=== PATIENT | male | born 1945 | race Caucasian/White ===

== ENCOUNTER 2017-07-05 22:18 | Inpatient (IN) | payer OTHER ==
[2017-07-05 23:05] LABS: BASOPHILS 0.6 % (0-2); EOSINOPHILS 3.2 % (0-7); HEMATOCRIT 40.1 % (42.0-54.0); IMMATURE GRANULOCYTES 0.1 % (0-5); LYMPHOCYTES 32.5 % (15-50); MCH 29.7 pg (26.0-34.0); MCHC 32.4 g/dL (31.0-37.0); MCV 91.6 fL (80.0-100.0); MEAN PLATELET VOLUME 9.2 fL (7.4-10.4); MONOCYTES 10.2 % (2-11); NEUTROPHILS 53.4 % (40-80); PLATELET COUNT 337 10x3/uL (130-400); RBC 4.38 10x6/uL (4.20-6.10); RDW 16.1 % (11.5-14.5); WBC 6.8 10x3/uL (4.8-10.8)
[2017-07-05 23:12] LABS: INR 0.95 (0.85-1.17); PROTIME 12.5 SECONDS (11.6-15.0)
[2017-07-05 23:15] LABS: ANION GAP 10.1 mmol/L (8-16); BILIRUBIN - TOTAL 0.28 mg/dL (0.2-1.3); CALCIUM 8.6 mg/dL (8.5-10.1); CARBON DIOXIDE 29.7 mmol/L (21.0-32.0); CREATININE - SERUM 1.4 mg/dL (0.6-1.3); POTASSIUM - SERUM 3.8 mmol/L (3.5-5.1)
--- NOTE | 2017-07-06 00:39 | NUR ---
REPORT RECEIVED FROM RENALDO GARCIA.
--- NOTE | 2017-07-06 01:05 | NUR ---
ARRIVED TO FLOOR VIA STRETCHER, ACCOMPANIED BY HOSPITAL STAFF. ORIENTED TO UNIT, LEFT HIP DRESSING REMOVED. MAXIPAD USED FOR DRESSING FROM HOME, INCISION IS EMPTYING SEROSANGUINOUS FLUID, PT STATES THIS HAS BEEN DOING THIS SINCE HIS LAST HIP SURGERY 1 YEAR AGO. CLEAN WITH 4X4 AND NEW DRESSING ATTACHED. NPO FOR SURGERY. CONSENTS OBTAINED.
[2017-07-06] MEDS ORDERED: METHADONE 10 MG10 MG PO (01:07)
[2017-07-06] MEDS ORDERED: PROVENTIL HFA6.7 GM INH (01:08)
[2017-07-06] MEDS ORDERED: BACTRIM 400-801 TAB PO (01:09)
[2017-07-06] MEDS ORDERED: BAYER CHEWABLE81 MG PO (01:09)
[2017-07-06] MEDS ORDERED: SENNA LAXATIVE8.6 MG PO (01:10)
[2017-07-06] MEDS ORDERED: SPIRIVA RESPIMAT4 G1 INH (01:11)
[2017-07-06] MEDS ORDERED: EUCERIN CREAM120 GM TOPICAL (01:12)
[2017-07-06] MEDS ORDERED: MUCINEX600 MG PO (01:13)
[2017-07-06] MEDS ORDERED: DIPHEDRYL25 MG PO (01:14)
[2017-07-06] MEDS ORDERED: ACETAMINOPHEN325 MG PO (01:14)
--- NOTE | 2017-07-06 01:50 | NUR ---
EKG DONE AND PREOP MEDS GIVEN. GONE FOR SURGERY.
--- NOTE | 2017-07-06 03:52 | NUR ---
BACK FROM SURGERY, AWAKE AND ORIENTED. VSS. LEFT HIP DRESSING IS C/D/I, ABDUCTOR IN PLACE. CALL LIGHT IN REACH. WILL CONTINUE TO MONITOR.
[2017-07-06 04:00] VITALS: BP 119/63
--- NOTE | 2017-07-06 06:35 | NUR ---
LEFT HIP DRESSING REMAINS C/D/I, ABDUCTOR PILLOW IN PLACE. VSS AND ANCEF INFUSING. CALL LIGHT IN REACH, URINAL AT BEDSIDE.
--- NOTE | 2017-07-06 07:15 | NUR ---
ASSESSMENT COMPLETED. DENIES ANY NEEDS. RIGHT AC IV WITH NS AT 75. DRSG TO LEFT HIP DRY AND INTACT. ABDUCTION PILLOW IN USE. PPP BUT WEAK. AWAKE AND ALERT. NO NEEDS VOICED. CALL LIGHT IN REACH WITH SR UP. WILL MONITOR
[2017-07-06 08:00] VITALS: BP 109/53
--- NOTE | 2017-07-06 08:22 | OP ---
PATIENT NAME: LEONOR ELE MEDICAL RECORD: [id number] :[birth year] LOCATION:D. D.2128 ADMISSION DATE:07/06/17 SURGEON: BIJAN ANGELO DO DATE OF OPERATION: 07/06/2017 PROCEDURE PERFOMED: An open left hip reduction. SURGEON: Bijan Angelo DO. PREOPERATIVE DIAGNOSIS: Left hip dislocation after a total hip arthroplasty and revision. POSTOPERATIVE DIAGNOSIS: Left hip dislocation after a total hip arthroplasty and revision. INDICATIONS: Mr. Lee is a 72-year-old male who has had several left hip dislocations following hip surgery. It has been done at the [facility]. He presented to [facility] ER this evening with another hip dislocation. He was wanting to be transferred to the [facility]; however, they did not have a bed for him, so he was taken care of here. His left hip had been dislocated since about 8:00 on 07/05/2017, when he bent over to pick something up, put a tape in the player, he said. We discussed with him the risks and benefits of surgery. We attempted a closed reduction; however, that did not happen. After the risks and benefits of surgery were discussed and due to the fact that the prosthesis was tenting the skin. It was felt there was an emergent case to get his hip reduced to prevent it from extruding through the skin and the OR team was called in. DESCRIPTION OF PROCEDURE: Mr. Lee was taken to the operative suite, given general anesthetic and intubated by anesthesia. A closed reduction attempt was made on his left hip, which was not successful. Prior to all this, a timeout was performed and the correct side, site and procedure was confirmed by all members of the room and another surgical team. Prior to any of this, he was given 2 grams Ancef as well. After the closed hip reduction was unsuccessful, the patient was prepped and draped and a previous skin incision was used to go into the hip just through the skin. The prosthetic hip and femoral head was layered, once the patient was placed in the right lateral recumbent position and he was prepped and draped. A skin incision was then made. The prosthesis was there. Several bits of soft tissue were encountered at that time and removed. The hip was then reduced into the prosthetic acetabulum and seemed to be stable, somewhat. It stayed in placed and did not re-dislocate after small range of motion. The wound was then closed using 0 Vicryl pops and 2-0 Vicryl and then a 4-0 Monocryl was run on the skin. Steri-Strips were placed over that, Adaptic 4 x 4s, and Tegaderms were placed over the skin. The patient was then awakened after being placed into an abductor pillow and taken to PACU for recovery. Estimated blood loss 50 mL. The wound was irrigated copiously with 2 liters of normal saline prior to closure. TRANSINT:[id number] Voice Confirmation ID: [id number] DOCUMENT ID: [id number] OPERATIVE REPORT [id number] LEONOR LEE,BIJAN Medina DO at 0822 CC: [id number] DICTATION DATE: 07/06/17 0334 LOG CHECK SCALER: 07/06/17 0451 ADM IN [facility] [address] [place] [address]
--- NOTE | 2017-07-06 11:30 | NUR ---
Patient Name: LEONOR BURTON Admission Status: ER Accout number: [id number] Admission Date: 07-06-2017 : 1945 Admission Diagnosis: Attending: JAVI Current LOS: 1 Anticipated DC Date: 07-07-2017 Planned Disposition: [facility] facility Primary Insurance: [employer] PLANNED EXTERNAL PROVIDER: [facility], [facility] [place] Discharge Planning Comments: * Is the patient Alert and Oriented? Yes 0 * How many steps to enter\exit or inside your home? 7 0 * PCP DR. HINTON, [facility] 0 * Pharmacy [facility] * Preadmission Environment Home Alone 0 * ADLs Independent 0 * Equipment Nebulizer Other Rolling Walker Walker Wheelchair 0 * Other Equipment ELECTRIC WHEELCHAIR AT [facility] TO BE DELIVERED TO PT'S HOME [facility] - MEDICAL EQUIPMENT PROVIDER 0 * List name and contact numbers for known caregivers / representatives who currently or will assist patient after discharge: SHORTY ANTUNEZY, CAREGIVER, 0 * Community resources currently utilized Private Duty Care 0 * Please name any agencies selected above. PRIVATE PAY CARE, [facility] [place], NEEDED / REQUESTED BY PATIENT 0 * Additional services required to return to the preadmission environment? Yes * Can the patient safely return to the preadmission environment? Yes 0 * Has this patient been hospitalized within the prior 30 days at any hospital? No 0 CM RECEIVED TRANSFER ORDER, MET WITH PT IN ROOM TO DISCUSS DISCHARGE PLANNING AND NEEDS. PT REPORTS LIVING AT HOME INDEPENDENTLY AND ALONE. PT REPORTS HAVING ALL NEEDED MEDICAL EQUIPMENT FROM [facility] AND HAS ELECTRIC WHEELCHAIR WAITING FOR DELIVERY FROM THE [facility]; THE [facility] IS ALSO SUPPOSED TO BE CONSTRUCTING RAMP FOR PT'S HOME ACCESS. PT HAS PRIVATE PAY CAREGIVER THAT PT USES NEEDED. CM DISCUSSED THE TRANSFER ORDER, PT IN AGREEMENT WITH TRANSFER TO [facility] FOR [facility]AB SERVICES, REPORTS HE WAS IN THE SNF [facility] THREE MONTHS AGO. CM CALLED LANCE BOYD OF [facility], FOR NUMBER TO ALF FACILITY. LANCE ADVISED THAT [facility] DOES NOT ACCEPT DIRECT REFERRALS AND DIRECTED CM TO CALL AOD/EXPEDITOR. CM CALLED [facility] EXPEDITOR, , SPOKE TO VIRI AND PROVIDED REFERRAL FOR TRANSFER TO REHAB SERVICES. VIRI ADVISED THAT PT WILL NOT TRANSFER TODAY IT IS TOO SOON FOLLOWING SURGERY. VIRI TO FORWARD REFERRAL FOR REHAB TO LANCE BOYD FOR SCREENING. CM WAITING ADMISSION DETERMINATION AND BED AVAILABILITY AT [facility]. Golf Sales Associate: Kris Philippe
--- NOTE | 2017-07-06 12:44 | NUR ---
LYING QUIETLY. DENIES ANY NEEDS. CALL LIGHT IN REACH. WILL MONITOR
[2017-07-06 19:00] VITALS: BP 131/58
--- NOTE | 2017-07-06 21:06 | NUR ---
HS MEDS GIVEN WITH FRESH ICE WATER. PT DENIES PAIN OR NEEDS, BED LOW, CL IN REACH.
--- NOTE | 2017-07-07 03:28 | NUR ---
RESTING WITH EYES CLOSED, RESPERATIONS EVEN, NO S/S DISTRESS NOTED.
--- NOTE | 2017-07-07 03:46 | NUR ---
RESTING IN BED WITH RESPS EVEN/NONLABORED. CALL LIGHT IN REACH. CPOC.
[2017-07-07 04:00] VITALS: BP 118/52
[2017-07-07 05:56] LABS: BASOPHILS 0.5 % (0-2); EOSINOPHILS 5.4 % (0-7); HEMATOCRIT 35.9 % (42.0-54.0); HEMOGLOBIN 11.4 g/dL (13.5-17.5); IMMATURE GRANULOCYTES 0.1 % (0-5); LYMPHOCYTES 26.7 % (15-50); MCH 29.5 pg (26.0-34.0); MCHC 31.8 g/dL (31.0-37.0); MCV 92.8 fL (80.0-100.0); MEAN PLATELET VOLUME 9.7 fL (7.4-10.4); NEUTROPHILS 57.3 % (40-80); PLATELET COUNT 323 10x3/uL (130-400); RBC 3.87 10x6/uL (4.20-6.10); RDW 16.8 % (11.5-14.5); WBC 8.1 10x3/uL (4.8-10.8)
[2017-07-07 06:15] LABS: CARBON DIOXIDE 24.7 mmol/L (21.0-32.0); CREATININE - SERUM 1.2 mg/dL (0.6-1.3); POTASSIUM - SERUM 3.7 mmol/L (3.5-5.1)
--- NOTE | 2017-07-07 07:15 | NUR ---
RESTING QUIETLY RESP UNLABORED NAD NOTED
--- NOTE | 2017-07-07 07:30 | NUR ---
ASSESSMENT COMPLETED. AWAKE AND ALERT. RIGHT AC IV.LEFT HIP WITH ABDUCTION PILLOW IN PLACE. DENIES ANY NEEDS. SR UP WITH CALL LIGHT IN REACH.
--- NOTE | 2017-07-07 07:37 | HP ---
PATIENT: LEONOR BURTON MEDICAL RECORD: [id number] ACCOUNT: [id number] LOCATION:[address] : [birth year] ADMISSION DATE: 07/06/17 HISTORY AND PHYSICAL EXAMINATION HISTORY OF PRESENT ILLNESS: A 72-year-old male who presented to the Emergency Room with dislocation of left hip prosthesis. The patient is a [facility] patient who has no physician with privileges here. He receives all his medical care through the [facility]. No beds available at the [facility]. He reportedly had tenting thinning from the prosthesis, tenting in the skin; had numbness to his foot. Intervention was required. Unsuccessful attempts to reduce the dislocation in the Emergency Room and under anesthesia. Due to the nature of his presentation, he was taken to surgery for open reduction; successful reduction obtained. PAST MEDICAL HISTORY: Significant for hip fracture, multiple surgical procedures, left hip replacement, multiple dislocations, unclear history of cancer, osteomyelitis, peripheral vascular disease, COPD, current nicotine dependence, and everyday smoker. MEDICATIONS: Reviewed as per chart. ALLERGIES: REPORTED IS MINOCYCLINE. REVIEW OF SYSTEMS: GENERAL: He denies any acute change in weight or appetite. HEENT: No cephalgia, visual changes, tinnitus, epistaxis or dysphagia. CARDIOVASCULAR: He denies chest pain or palpitations. PULMONARY: He denies hemoptysis. He denies night sweats. GASTROINTESTINAL: He denies hematemesis, hematochezia or melena. GENITOURINARY: He denies dysuria. MUSCULOSKELETAL: Significant for the recurrent dislocations to the left hip and the acute dislocation and inability to reduce the prosthesis with neurological and musculoskeletal significant symptoms. PHYSICAL EXAMINATION: VITAL SIGNS: Afebrile, blood pressure 119/63, heart rate 71, respirations 16, O2 sats 96%. GENERAL: Alert and oriented, no present distress. He is status post open reduction. HEENT: Normocephalic and atraumatic. Eyes: Pupils equal, round, and reactive. Ears: Canals patent. Nose: Nares patent. Throat: No erythema and no exudates. NECK: Supple. HEART: Regular rate and rhythm. LUNGS: Clear, mildly prolonged expiratory phase. Breathing is nonlabored. ABDOMEN: Soft and nontender. Bowel sounds all 4 quadrants. EXTREMITIES: Present times 4. Surgical wound is clean, dry and intact. LABORATORY DATA: CBC: White count 6.8, hemoglobin 13, hematocrit 40, platelets 337. Chemistry shows a sodium of 136, potassium 3.8, chloride 100, bicarbonate 29.7. BUN 14, creatinine 1.4, glucose 100. INR 0.95. ASSESSMENT AND PLAN: Dislocation prosthetic left hip requiring open reduction, nicotine dependence, and chronic obstructive pulmonary disease. HISTORY AND PHYSICAL [id number] JOSEPHINELEONOR R 1. The patient is admitted. He is status post the open reduction, doing well. We will consult case management for transfer to the [facility] for rehab versus inpatient rehab depending on bed availability at the [facility] and the patient's wishes. 2. Nicotine dependence. Counseled on smoking cessation. 3. Chronic obstructive pulmonary disease, supportive care. TRANSINT:[id number] Voice Confirmation ID: [id number] DOCUMENT ID: [id number] ANA LEONE DO at 0737 CC: [id number] DICTATION DATE: 07/06/17 0755 ASSISTANT OPERATOR: 07/06/17 0837 ADM IN [facility] [address] [place] [address]
[2017-07-07 08:18] VITALS: BP 123/59
--- NOTE | 2017-07-07 11:30 | NUR ---
UP IN BEDSIDE CHAIR PER PHYSICAL THERAPY. CALL LIGHT IN REACH
--- NOTE | 2017-07-07 11:31 | NUR ---
Patient Name: LEONOR BURTON Encounter No: [id number] : 1945 Primary Insurance: [employer] Anticipated DC Date: 07-07-2017 Planned Disposition: Inpatient Rehab External Planned Provider: [facility] DCP follow-up note: CM CALLED [facility], GEGE VELAZQUEZ, , LEFT MESSAGE INFORMING OF URGENCY OF REFERRAL FOR PT'S REHAB AND REQUESTING RETURN CALL SOON POSSIBLE. CM THEN RECEIVED CALL FROM KEVIN SANDOVAL, ADMISSIONS NURSE FOR [facility]. KEVIN REPORTS THEY SCREEN PT'S THURSDAY THRU THURSDAY AT 0915 AM AND THEY CAN SCREEN PT TOMORROW; ADMISSION TODAY IS NOT POSSIBLE. KEVIN INFORMED CM THAT PT IS NOT SERVICE CONNECTED AND THAT OTHER SERVICE CONNECTED PATIENTS TAKE PRIORITY AND THEY SCREEN 6 PATIENTS TODAY ALSO THAT HAVE PRIORITY OVER PATIENT. KEVIN ADVISED THAT PT HAS MEDICARE A AND B AND THAT CM SHOULD CONSIDER ALTERNATIVES IN THE COMMUNITY FOR REHAB SERVICES. KEVIN WILL FAX CM CHECKLIST FOR PT'S INFORMATION TO BE SENT FOR SCREENING TOMORROW. CM MET WITH PT IN ROOM, DISCUSSED ABOVE. PT HAS MEDICARE PART A ONLY CARD, WOULD BE INTERESTED IN STAYING WITH [facility] AND BELIEVES HE WILL NOT REQUIRE A LONG STAY WITH PLAN TO RETURN HOME WITH [facility] DIRECTOR PERSONAL CARE ASSISTANCE ARRANGED BY PATIENT. CM CALLED STACIE OF INPATIENT REHAB, BED AVAILABLE AND WILL SCREEN PT FOR ADMISSION WITH ORDER. ORDER FOR INPATIENT REHAB PRESCREENING OBTAINED. CM WAITING [facility] PRESCREENING DETERMINATION. Kris Philippe, CASE MANAGEMENT
--- NOTE | 2017-07-07 11:59 | NUR ---
Rehab Note- Acute Rehab Prescreen order received. Reviewed medical record, the patient appears to be a good rehab candidate. Will await Physical therapy screen to see the patient's functional mobility. Will continue to follow the patient at this time. Thank you for this referral! Doreen Ventura RN Clinical Liaison, [facility] Rehab
[2017-07-07 12:23] VITALS: BP 123/59
--- NOTE | 2017-07-07 17:03 | NUR ---
Patient Name: LEONOR BURTON Encounter No: [id number] : 1945 Primary Insurance: [employer] Anticipated DC Date: 07-07-2017 Planned Disposition: Inpatient Rehab External Planned Provider: [facility] DCP follow-up note: CM RECEIVED CALL FROM STACIE OF INPATIENT REHAB WHO REPORTED THAT [facility] PLANS TO ACCEPT PT TODAY. CM CALLED AND SPOKE TO KEVIN SANDOVAL OF [facility], , WHO INFORMED CM NOT TO COMPLETE THE ASSESSMENT AND FAX FOR SCREENING AT RI IF ACCEPTED AT [facility]. PT NOTIFIED. DISCUSSED USING MEDICARE FOR REHAB SERVICES AT [place]. PT IN AGREEMENT WITH DISCHARGE TO INPATIENT REHAB AT [place] FOR MEDICARE COVERED SERVICES. CM CALLED [facility], WHICH WAS CLOSED. BEDSIDE NURSE NOTIFIED. [facility] TO CONTACT MED 2 NURSE WITH ROOM NUMBER WHEN READY TO ACCEPT PT AND NURSE REPORT. Kris Philippe, CASE MANAGEMENT
[2017-07-07 17:06] VITALS: BP 132/55
--- NOTE | 2017-07-07 17:50 | NUR ---
Rehab Note- Spoke with [employer] [facility], int business office about Medicare A benefits. Can accept the patient today to [facility] Acute Rehab. Thank you for this referral! Doreen Ventura RN Clinical Liaison, [facility] Rehab
--- NOTE | 2017-07-07 19:33 | NUR ---
ASSESSMENT COMPLETE, A&O. IV TO RIGHT AC SL. SITE CLEAN AND DRY. LEFT HIP WITH DRSG INTACT AND BRACE ON. INFORMED PT OF DISCHARGE TO REHAB, PT STATED UNDERSTANDING.
--- NOTE | 2017-07-07 20:04 | NUR ---
CALLED REPORT TO SUZANNA GUO IN REHAB.
--- NOTE | 2017-07-07 20:20 | NUR ---
HS MEDS GIVEN, PT DENIES NEEDS AT THIS TIME, BED LOW, CL IN REACH.
--- NOTE | 2017-07-08 08:01 | DS ---
PATIENT:LEONOR BURTON :[birth year] MEDICAL RECORD: [id number] DISCHARGE SUMMARY ADMISSION DATE: 07/06/17 DISCHARGE DATE: 07/07/17 A 72-year-old male. DATE OF ADMISSION: 07/06/2017 DATE OF DISCHARGE: 07/07/2017 ADMISSION DIAGNOSIS: Dislocation prosthesis, left hip, open reduction. DISCHARGE DIAGNOSIS: Dislocation prosthesis, left hip, status post open reduction. HOSPITAL COURSE: The patient was admitted to the Emergency Room with gross deformity, left hip prosthesis tendinitis scan, unsuccessful reduction in the Emergency Room. Orthopedics, Dr. Toscano consulted. The patient required open reduction. The patient has had multiple procedures that is from his hip. At the [facility], who is his primary caregiver, his only caregiver, they had no beds available, he underwent treatment here. He has had successful relocation with the open reduction. The patient needs rehabilitation. The patient is discharged to rehab in stable condition. DISCHARGE MEDICATIONS: Per med rec. PHYSICAL EXAMINATION: VITAL SIGNS: On discharge, temperature 98.2, blood pressure 118/52, heart rate 72, respirations 16, O2 sats 97% on room air. HEART: Regular rate and rhythm. LUNGS: Clear. ABDOMEN: Soft. EXTREMITIES: Present times 4. Surgical wound is clean, dry and intact. Follow up with Dr. Toscano, follow up with the [facility] after rehabilitation discharge. TRANSINT:[id number] Voice Confirmation ID: [id number] DOCUMENT ID: [id number] ANA LEONE DO at 0801 CC: [id number] DICTATION DATE: 07/07/17814 SOLAR INSTALLATION MANAGER: 07/07/172 DIS IN 07/07/[address] [place] [id number] [place] [address]
== END 2017-07-07 20:25 | DRG 468 ==
LOC: D.ER 22:18 → D.M2 07-06 00:29 → OBSVTIME 07-06 00:30 → D.M2 07-06 10:20
PROVIDERS: Emergency Medicine; Orthopaedic Surgery; ADMIT Family Medicine
PROC: 0SWE0JZ Revision of Synthetic Substitute in Left Hip Joint, Acetabular Surface, Open Approach (ICD-10-PCS; principal; 2017-07-06 01:53)
DX: T84.021A Dislocation of internal left hip prosthesis, initial encounter (principal); Y83.8 Other surgical procedures as the cause of abnormal reaction of the patient, or of later complication, without mention of misadventure at the time of the procedure; J44.9 Chronic obstructive pulmonary disease, unspecified; I10 Essential (primary) hypertension; F17.200 Nicotine dependence, unspecified, uncomplicated

== ENCOUNTER 2017-07-07 20:44 | Inpatient (IN) | payer MEDICARE ==
[~2017-07-07] VITALS: Ht 180.3 cm; Wt 78.5 kg
[~2017-07-07 20:44] MED LIST: ACETAMINOPHEN325 MG PO; BACTRIM 400-801 TAB PO; BAYER CHEWABLE81 MG PO; DIPHEDRYL25 MG PO; EUCERIN CREAM120 GM TOPICAL; METHADONE 10 MG10 MG PO; MUCINEX600 MG PO; PROVENTIL HFA6.7 GM INH; SENNA LAXATIVE8.6 MG PO; SPIRIVA RESPIMAT4 G1 INH
--- NOTE | 2017-07-07 20:45 | NUR ---
PT RECIEVED FROM MED 2 VIA . ADMITTED TO ROOM [address] WILLSON SERVICES. PT IS ALERT AND ORIENTED X 3. DENIES ACUTE PAIN OR DISCOMFORT AT THIS TIME. ADMISSION PAPERWORK AND HISTORY DONE. DRESSING TO LEFT HIP NOTED TO BE SATURATED IN SLIGHTLY RED TINGED CLEAR DRAINAGE. DRESSING REMOVED AND SITE CLEANSED WITH WOUND SPORTS ATTORNEY. UNABLE TO DETECT ANY DRAINAGE DURING PROCEDURE. NEW DRESSING APPLIED TO SITE. PT VOICED VERBAL UNDERSTANDING TO ALL REHAB RULES AND PROCEDURES.
--- NOTE | 2017-07-07 22:09 | NUR ---
PT RESTING IN BED WATCHING TV. NO NEEDS VOICED.
[2017-07-07 22:26] VITALS: BP 138/65; BMI 24.1
--- NOTE | 2017-07-07 22:26 | NUR ---
ADMISSION ASSESSMENT COMPLETED. PT. RESTING COMFORTABLY IN BED. NO VOICED NEEDS AT THIS TIME AND HIS CALL LIGHT IS WITHIN REACH.
--- NOTE | 2017-07-08 00:03 | NUR ---
PT ASSISTED TO THE BATHROOM WITH SBA USING WC. NO DISTRESS NOTED. NO COMPLAINT VOICED.
--- NOTE | 2017-07-08 03:14 | NUR ---
PT RESTING IN BED WITH EYES CLOSED. ASSISTED TO THE BATHROOM PRN.
--- NOTE | 2017-07-08 05:54 | NUR ---
PT IS RESTING QUIETLY IN BED WITH EYES CLOSED. NO ACUTE DISTRESS NOTED.
[2017-07-08 07:41] LABS: BASOPHILS 0.7 % (0-2); EOSINOPHILS 7.5 % (0-7); HEMATOCRIT 37.8 % (42.0-54.0); HEMOGLOBIN 12.6 g/dL (13.5-17.5); IMMATURE GRANULOCYTES 0.2 % (0-5); LYMPHOCYTES 22.6 % (15-50); MCH 30.2 pg (26.0-34.0); MCHC 33.3 g/dL (31.0-37.0); MEAN PLATELET VOLUME 9.5 fL (7.4-10.4); PLATELET COUNT 348 10x3/uL (130-400); RBC 4.17 10x6/uL (4.20-6.10); WBC 8.7 10x3/uL (4.8-10.8)
[2017-07-08 07:46] LABS: MCV 90.6 fL (80.0-100.0)
[2017-07-08 08:15] LABS: CALC OSMOLALITY 263 mosm/kg (275-300); CALCIUM 9.1 mg/dL (8.5-10.1); CHLORIDE - SERUM 99 mmol/L (98-107); GLUCOSE 104 mg/dL (74-106); POTASSIUM - SERUM 3.8 mmol/L (3.5-5.1); SODIUM 133 mmol/L (136-145); UREA NITROGEN 8 mg/dL (7-18); eGFR NON AFRICAN AMERICAN 78 mL/min (90-120)
[2017-07-08 08:24] VITALS: BP 131/75
[2017-07-08 09:05] VITALS: Ht 180.3 cm; Wt 78.5 kg
--- NOTE | 2017-07-08 14:05 | RHP ---
PATIENT: LEONOR LEE MEDICAL RECORD: [id number] ACCOUNT: [id number] LOCATION:[facility]1119 : [birth year] ADMISSION DATE: 07/07/17 REHABILITATION HISTORY AND PHYSICAL EXAMINATION POST ADMISSION PHYSICIAN EXAMINATION Post-Admission Physical Examination and History and Physical DATE OF ADMISSION TO THE REHAB: 07/07/2017 ADMITTING DIAGNOSES: Open reduction of left hip due to a recurrent left hip dislocation. HISTORY OF PRESENT ILLNESS: Mr. Lee is admitted to inpatient rehab for open reduction of left hip due to recurrent left hip dislocation. He is a 72-year-old gentleman who presented to the Emergency Room with dislocation of his left hip prosthesis. The patient is a [facility] patient, who has no physician here. He receives all his medical care to the [facility]. No beds are available. He reported he had thinning from his prosthesis, thinning to the skin, had numbness to his foot. Intervention was required after unsuccessful attempts to reduce the dislocation and due to his nature of presentation, he was taken to surgery for an open reduction and successful reduction was obtained. He is in the acute hospital, has been seen by physical therapy. He is on a strict left hip precaution with use of abduction pillow to be used. He has been given IV antibiotics. His noted surgical left hip incision did have some drainage. He lives at home alone with a private caregiver as needed. He was independent with ADLs and mobility prior to surgery, currently setup for moderate to max assist for ADLs and moderate assist and total assist for mobility. He plans to return home with his prior level of functioning or better if possible. COMORBIDITIES: Include recurrent hip dislocation, peripheral vascular disease, COPD, arthritis, osteomyelitis, pain, self-care deficits, high risk for infection, osteomyelitis and impaired mobility. PAST MEDICAL HISTORY: Significant for hypertension, COPD, malignant neoplasm, gastroesophageal reflux disease, arthritis, osteomyelitis, depression, he has got a history of tobacco use, left hip fracture and multiple left hip dislocations. PAST SURGICAL HISTORY: Includes surgery on his left hip. ALLERGIES: MINOCYCLINE. CURRENT MEDICATIONS: He is on Tudorza b.i.d., chewable aspirin daily, he is on a dose of Bactrim b.i.d., senna 1 tab daily p.r.n., he is on Eucerin as needed, methadone 10 mg b.i.d., Mucinex 600 mg b.i.d., diphenhydramine 25 mg b.i.d., Ventolin 2 puffs q.4 hours p.r.n. and Tylenol as needed. HABITS: No alcohol use at this time, but does have some tobacco use. FAMILY HISTORY: Noncontributory. SOCIAL HISTORY: The patient hopes to return back home as above. REVIEW OF SYSTEMS: HISTORY AND PHYSICAL [id number] LEONOR LEE GENERAL: Does complain of weakness and fatigue. HEENT: Denies cold, cough, or congestion. CARDIOVASCULAR: Denies chest pain. PHYSICAL EXAMINATION: VITAL SIGNS: Stable, afebrile. GENERAL: A well-developed gentleman in no acute distress, alert upon exam. HEENT: Normocephalic and atraumatic. Mucosa moist. NECK: Supple. No lymphadenopathy. LUNGS: Clear at this time. HEART: Regular rate and rhythm. ABDOMEN: Benign. EXTREMITIES: Consistent with hip surgery. NEUROLOGIC: Seems intact. LABORATORY DATA: His white count is 8.7, H&H of 13 and 38 and platelet count was noted to be 348. His sodium is 133, potassium 3.8, BUN and creatinine of 8 and 1.0 and blood sugar is 104. ASSESSMENT: This is a 72-year-old gentleman admitted to the rehab with a working diagnosis of an open reduction of his left hip secondary to chronic dislocations. The patient has potential to make improvement. We instituted the following multidisciplinary therapies including, but not limited to physical, occupational, respiratory, speech, nutritional services, prosthetics and orthotics. Given his complex condition and risk for more complications, rehabilitation services cannot be provided at a lower level of care such as a fci facility. PLAN: 1. Admit to [facility] rehab for intensive inpatient therapy to include the following disciplines: A. Physical therapy to improve gait, all transfer skills and bed mobility to a modified independent level. B. Occupational therapy to improve activities of daily living to a modified independent level. C. Case management to assist with discharge planning and placement options. D. Nutrition to assist with nutritional needs. E. Rehabilitation nursing to assist and monitor the patient's underlying medical conditions and to assist with any type of bowel or bladder management. 2. The patient's current medication and medical care will be continued. 3. The patient will be placed on standard fall precautions. 4. The patient's estimated length of stay is approximately 7-10 days. 5. Discuss this patient during care team staff meeting this week. TRANSINT:[id number] Voice Confirmation ID: [id number] DOCUMENT ID: [id number] FANNY notes whether there has been none or any medical/functional change since admission: - FANNY attests patient continues to be appropriate for IRF: - HISTORY AND PHYSICAL [id number] LEONOR LEE SCOTT MD at 1405 CC: [id number] DICTATION DATE: 07/08/1730 INTERACTIVE MEDIA MARKETING DIRECTOR: 07/08/17 1033 ADM IN [facility] [address] [place] [id number]
--- NOTE | 2017-07-08 16:18 | NUR ---
PATIENT ADMITTED TO REHAB FROM ACUTE FLOOR.DR. HINTON AT [facility] IS HIS PCP. DME AT HOME: ROLLING WALKER, WHEELCHAIR, NEBULIZER AND AN ELECTRIC WHEELCHAIR FROM [place]. WILL CONTINUE TO FOLLOW WITH PATIENT. HE WILL BE RA AT NEXT MEETING. 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
--- NOTE | 2017-07-08 19:47 | NUR ---
PT IS RESTING IN BED WITH EYES CLOSED. AWOKE EASILY TO VERBAL STIMULI. ALERT AND ORIENTED X 4. DENIES ANY PAIN OR DISCOMFORT AT THIS TIME. PT FULLY DRESSED AT THIS TIME. I WILL LOOK AT HIP INCISION WHEN HE GOES TO THE BATHROOM NEXT. SR'S ARE UP X 2 IN BED. CALL LIGHT AND BEDSIDE TABLE ARE WITHIN EASY REACH.
[2017-07-08 20:07] VITALS: BP 137/78
--- NOTE | 2017-07-08 21:33 | NUR ---
PT IS IN HIS ROOM WITH THE RESPIRATORY THERAPIST. NO COMPLAINT VOICED.
--- NOTE | 2017-07-08 23:26 | NUR ---
RESTING IN BED WITH EYES CLOSED. NO DISTRESS NOTED.
--- NOTE | 2017-07-09 01:29 | NUR ---
LYING IN BED WITH BLANKET COVERING HALF OF HIS FACE. NO S/S OF DISTRESS OBSERVED. LEGS AND FEET CYANOTIC WITH BRIGHT RED SKIN TO BOTTOM OF FEET. CALVES LOOK TAUT WITH SOME DRY SKIN OBSERVED. CALL LIGHT AND OVERBED TABLE IN REACH. IV TO RIGHT AC PATENT. DRESSING CLEAN, DRY ANDR INTACT.
--- NOTE | 2017-07-09 05:54 | NUR ---
PT RESTING IN BED WITH EYES CLOSED. AWOKE EASILY TO VERBAL STIMULI. REFUSED SHOWER THIS AM.
--- NOTE | 2017-07-09 08:03 | NUR ---
SITTING UP IN BED EATING BREAKFAST. CALL LIGHT IN REACH. DENIES NEEDS.
--- NOTE | 2017-07-09 08:14 | NUR ---
SITTING UP IN BED EATING BREAKFAST. DENIES NEEDS. WEEDGE BETWEEN BLE.
--- NOTE | 2017-07-09 12:12 | NUR ---
SITTING UP IN ROOM EATING LUNCH. DENIES NEEDS OR C/O. HAS BRACE ON THAT GOES AROUND HIS WAIST AND UPPER PART OF LLE.
[2017-07-09 16:11] VITALS: BP 116/74
--- NOTE | 2017-07-09 16:22 | NUR ---
LAYING DOWN IN BED WATCHING TV. HAS LEG WEDGE BETWEEN LEGS. INCISION HAS MINIMAL AMT OF SEROUS DRAINAGE NOTED TO DRESSING. DENIES INCREASED PAIN.
--- NOTE | 2017-07-09 19:40 | NUR ---
REST IN BED AND WATCH TV.
--- NOTE | 2017-07-09 21:50 | NUR ---
DRESSING CHANGE IN LEFT HIP.
[2017-07-10 02:16] VITALS: BP 128/69
--- NOTE | 2017-07-10 03:20 | NUR ---
IN BED, EYES CLOSED. NO DISTRESS NOTED.
--- NOTE | 2017-07-10 03:40 | NUR ---
REST IN BED, EYE CLOSE, CALL LIGHT WITHIN REACH.
[2017-07-10 06:19] LABS: ANION GAP 9.7 mmol/L (8-16); CALCIUM 8.5 mg/dL (8.5-10.1); CARBON DIOXIDE 29.7 mmol/L (21.0-32.0); CREATININE - SERUM 1.2 mg/dL (0.6-1.3)
[2017-07-10 06:21] LABS: POTASSIUM - SERUM 4.4 mmol/L (3.5-5.1)
[2017-07-10 06:31] LABS: HEMATOCRIT 36.6 % (42.0-54.0); HEMOGLOBIN 12.1 g/dL (13.5-17.5); LYMPHOCYTES 38.1 % (15-50); MCH 30.1 pg (26.0-34.0); MCHC 33.1 g/dL (31.0-37.0); MEAN PLATELET VOLUME 9.2 fL (7.4-10.4); NEUTROPHILS 38.2 % (40-80); PLATELET COUNT 334 10x3/uL (130-400); RBC 4.02 10x6/uL (4.20-6.10); WBC 6.7 10x3/uL (4.8-10.8)
--- NOTE | 2017-07-10 08:00 | NUR ---
SITTING UP IN BED EATING BREAKFAST. DENIES INCREASED PAIN OR NEEDS. HAS WEDGE IN BETWEEN LEGS. NOT WEARING STRAP ON HIP/LEG BRACE AT PRESENT. [facility] AND IT STILL IS SUPPORTIVE AND USEFUL
[2017-07-10 09:10] VITALS: BP 101/48
--- NOTE | 2017-07-10 12:19 | NUR ---
SITTING UP IN WC EATING LUNCH. DENIES NEEDS OR C/O.
--- NOTE | 2017-07-10 19:33 | NUR ---
CALLED TO ROOM BY STAFF DUE TO EXCESSIVE DRAINAGE OF LEFT HIP INCISION. PT. STATED WHEN HE SAT ON THE TOILET THE DRESSING FELL OFF AND DRAINAGE STARTED SPRAYING OUT OF WOUND. WOUND IS WARM TO TOUCH, RED AND SWOLLEN. WOUND CLEANSED AND REDRESSED . DRAINAGE APPEARED TO BE SEROSANGUOS WITH YELLOW PUS. EXCESSIVE AMOUNT OBSERVED. CALL LIGHT AND OVERBED TABLE IN REACH.
[2017-07-10 20:27] VITALS: BP 113/59
--- NOTE | 2017-07-10 21:22 | NUR ---
RESTING IN BED AT THIS TIME WITH EYES OPEN AND TV ON. DENIES ANY PAIN. DRESSING TO LEFT HIP INTACT. ALERT AND ORIENTED. PLEASANT AND COOPERATIVE. CALL LIT AND OVERBED TABLE IN REAC.
--- NOTE | 2017-07-11 00:14 | NUR ---
RESTING IN BED WITH EYES CLOSED. NO S/S OF DISTRESS OBSERVED. CALL LIGHT IN REACH.
[2017-07-11 08:00] VITALS: BP 114/51
--- NOTE | 2017-07-11 08:00 | NUR ---
SHIFT ASSMT COMPLETED.DRSG LEFT HIP INTACT.BREAKFAST GIVEN.DENIES NEEDS.
--- NOTE | 2017-07-11 12:00 | NUR ---
EATING LUNCH.VISITING WITH FRIEND.
--- NOTE | 2017-07-11 16:00 | NUR ---
OUTSIDE IN WC WITH FRIEND
--- NOTE | 2017-07-11 19:35 | NUR ---
SIT UP IN BED AND WATCH TV.
--- NOTE | 2017-07-11 19:51 | NUR ---
PT. IN BED WITH HOB UP FOR COMFORT WATCHING TV. NO VOICED NEEDS AT THIS TIME AND HE HAS HIS CALL LIGHT WITHIN REACH.
--- NOTE | 2017-07-11 20:05 | NUR ---
DRESSING CHANGE LEFT HIP WITH WOUND CLEASER, COVER 4X4, AND ABD PAD, SECURED WITH SOFT CLOTH SURGICAL TAPE.
--- NOTE | 2017-07-11 21:55 | NUR ---
APPLIED EUCERIN CREAM TO BILATERAL LEGS.
[2017-07-12 01:32] VITALS: BP 142/63
--- NOTE | 2017-07-12 01:49 | NUR ---
REST IN BED, EYE CLOSE, CALL LIGHT WITHIN REACH.
--- NOTE | 2017-07-12 04:58 | NUR ---
REST IN BED, CALL LIGHT WITHIN REACH.
[2017-07-12 08:00] VITALS: BP 118/49
--- NOTE | 2017-07-12 08:00 | NUR ---
SHIFT ASSMT COMPLETED.DENIES NEEDS.DRSG LEFT HIP INTACT.
--- NOTE | 2017-07-12 12:00 | NUR ---
EATING LUNCH.DENIES NEEDS.
--- NOTE | 2017-07-12 16:00 | NUR ---
RESTING QUIETLY.CL IN REACH.
[2017-07-12 19:00] VITALS: BP 120/81
--- NOTE | 2017-07-12 19:48 | NUR ---
PT. UP IN W/C AND HAS NO VOICED NEEDS. CALL LIGHT WITHIN REACH.
--- NOTE | 2017-07-13 | NUR ---
PT LYING IN BED. EYES CLOSED. CHEST RISING AND FALLING. LEFT LEG IMMBOLIZER WHEN UP. UP AD JON. WHEELCHAIR. NO O2. NO IV. BED IN LOWEST POSITION AND CALL LIGHT WITHIN REACH.
--- NOTE | 2017-07-13 03:00 | NUR ---
PT LYING IN BED WITH HOB UP FOR COMFORT, EYES CLOSED, CHEST RISING AND FALLING. BED IN LOWEST POSITION AND CALL LIGHT WITHIN REACH.
[2017-07-13 05:09] LABS: BASOPHILS 0.9 % (0-2); EOSINOPHILS 7.4 % (0-7); HEMATOCRIT 37.4 % (42.0-54.0); HEMOGLOBIN 11.8 g/dL (13.5-17.5); IMMATURE GRANULOCYTES 0.1 % (0-5); LYMPHOCYTES 34.4 % (15-50); MCH 29.5 pg (26.0-34.0); MCHC 31.6 g/dL (31.0-37.0); MCV 93.5 fL (80.0-100.0); MEAN PLATELET VOLUME 9.3 fL (7.4-10.4); MONOCYTES 12.7 % (2-11); NEUTROPHILS 44.5 % (40-80); PLATELET COUNT 355 10x3/uL (130-400); RDW 16.7 % (11.5-14.5)
[2017-07-13 05:42] LABS: ANION GAP 12.3 mmol/L (8-16); CALCIUM 8.8 mg/dL (8.5-10.1); CARBON DIOXIDE 27.2 mmol/L (21.0-32.0); CREATININE - SERUM 1.2 mg/dL (0.6-1.3); POTASSIUM - SERUM 4.5 mmol/L (3.5-5.1)
--- NOTE | 2017-07-13 06:13 | NUR ---
PT LYING IN BED WITH HOB UP FOR COMFORT. EYES CLOSED. CHEST RISING AND FALLING. BED IN LOWEST POSITION AN CALL LIGHT WITHIN REACH.
--- NOTE | 2017-07-13 07:19 | NUR ---
RESTING QUIETLY IN BED. NO S/S DISTRESS. CALL LIGHT IN REACH
[2017-07-13 09:07] VITALS: BP 114/53
--- NOTE | 2017-07-13 16:35 | NUR ---
RESTING QUIETLY IN BED. "INDUSTRIAL TRUCK DRIVER" IN ROOM WITH PT AGAIN. SHE BROUGHT PT TO DESK EARLIER STATING "WE NEED A PASS FOR A FEW HOURS". WHEN QUESTIONED ABOUT THE NEED SHE FINALLY SAID "WE HAVE BUSINESS TO TAKE CARE OF AT THE BANK". INDUSTRIAL TRUCK DRIVER AND PT WERE TALKED TO QUITE A BIT BY NURSE AND ADMISSIONS COORDINATER (KOLTON). INDUSTRIAL TRUCK DRIVER FINALLY STATED THEY NEEDED TO GO TO [facility] AND GET PANTS FOR PT. ALSO SHE WAS OUT OF GAS IN HER CAR AND ONLY PT COULD USE HIS DEBIT CARD TO GET MONEY. SHE KEPT INSISTING HE COULD DO THERAPY AT HOME. SHE SEEMED ANXIOUS AND ANNOYED WHEN QUESTIONED BY STAFF. PT SEEMED QUIET AND COOPERATIVE IN GOING ALONG WITH WHAT EVER INDUSTRIAL TRUCK DRIVER STATED. HE WAS TOLD ABOUT POTENTIAL FOR MEDICARE AND/OR [facility] IF PT WAS WELL ENOUGH TO LEAVE REHAB AND GO SHOPPING AT [facility]. PT REMAINED IN W/C WHOLE TIME. FINALLY, PT DECIDED TO STAY IN REHAB FOR THE PRESENT.
--- NOTE | 2017-07-13 18:47 | NUR ---
PT RETURNED TO FLOOR APPX 1800 BEING PUSHED IN W/C BY CAREGIVER. WHEN ASKED ABOUT THEIR PRESENCE FOR LAST 3.5 HRS THE CAREGIVER STATED "WE'VE BEEN IN THE PARKING LOT HAVING SEX", THE PT STATED THEY WERE IN THE CORNER OF THE PARKING LOT IN CARE GIVERS CARE SMOKING CIGARETTES. DR ISLAS NOTIFIED OF PT OFF UNIT FOR LONG PERIOD OF TIME AND HIS STORY WHEN HE RETURNED TO UNIT. PT DENIES INJURIES, CHANGE IN PAIN, SOB OR CHANGE IN CONDITION AT ALL. HE AND THE CAREGIVER WERE HEARD TALKING IN THE [place] BY STAFF FOR LONG PERIOD OF TIME PRIOR TO THEM LEAVING FLOOR, TALKING ABOUT NEEDING GAS FOR THE CAR AND ONLY THE PT COULD USE HIS DEBIT CARD. NURSE SPOKE WITH PT AND SALESPERSON RECREATIONAL VEHICLES REGUARDING POLICY ABOUT LEAVING HOSPITAL PROPERTY, PT SMOKING, BEING OFF UNIT FOR LONG PERIODS AND POSSIBILITY OF PT BEING D/C'D BEFORE EXPECTED D/C DATE. ALSO MEDICARE/MT BEING NOTIFIED OF PT ELOPING WHICH COULD IMPACT THE PAYMENT. PT AND SALESPERSON RECREATIONAL VEHICLES STATED UNDERSTANDING AND DENIES QUESTIONS.
[2017-07-13 19:56] VITALS: BP 121/58
--- NOTE | 2017-07-13 20:24 | NUR ---
RESTING IN BED WITH EYES CLOSED. NO S/S OF DISTRESS OBSERVED. EASILY AROUSES WITH VERBAL STIMULI. PLEASANT AND COOPERATIVE. DENIES ANY PAIN AT THIS TIME. DRESSING TO LEFT HIP. CLEAN, DRY AND INTACT. NO REDNESS OBSERVED.
[2017-07-14 07:00] VITALS: BP 101/43
--- NOTE | 2017-07-14 08:04 | NUR ---
SITTING UP IN BED WATCHING TV. DENIES PAIN OR NEEDS.
[2017-07-14] MEDS ORDERED: METHADONE 10 MG10 MG PO (08:41)
--- NOTE | 2017-07-14 10:05 | NUR ---
NOTIFIED PT THAT DR. ISLAS HAD D/C'D HIM. HE STATED UNDERSTANDING OF D/C AND SAID HIS POLICY CHANGE CLERKS SUPERVISOR WOULD BE TO GET HIM AT 1300
--- NOTE | 2017-07-14 12:03 | NUR ---
WENT OVER D/C INSTRUCTIONS WITH PT. HE DECLINED HOME HEALTH OR NEEDING SUPPLIES FOR DRESSING HIS OWN LEFT HIP, WHICH HE STATED HE COULD EASILY DO AND HAD SOME SUPPLIES AT HIS HOME FOR THAT. HE ST[facility] HIS HIP AND HAVE CONTINUED PHYSICAL THERAPY THROUGH THEM. GAVE PT HIS PAPER SCRIPT FOR METHADONE FROM DR ISLAS ALSO. WENT OVER HIS FOLLOW UP APPTS WITH MD'S. HE STATED NO QUESTIONS OR NEEDS.
--- NOTE | 2017-07-14 15:22 | NUR ---
EXECUTIVE ADMINISTRATOR PICKED PT UP. STAFF PUSHED PT TO FRONT OF HOSPITAL IN W/C WITH ALL PERSONAL BELONGINGS.
== END 2017-07-14 15:30 | disposition home or self-care (01) | DRG 560 ==
LOC: D.REHAB 20:44
PROVIDERS: ADMIT Emergency Medicine
DX: Z47.89 Encounter for other orthopedic aftercare (principal); M86.9 Osteomyelitis, unspecified; M24.452 Recurrent dislocation, left hip; I73.9 Peripheral vascular disease, unspecified; J44.9 Chronic obstructive pulmonary disease, unspecified; M19.90 Unspecified osteoarthritis, unspecified site; K21.9 Gastro-esophageal reflux disease without esophagitis; Z74.09 Other reduced mobility

== ENCOUNTER 2018-08-11 15:20 | Emergency (ER) | payer OTHER ==
[~2018-08-11] VITALS: Ht 180.3 cm; Wt 82.7 kg
[2018-08-11 15:26] VITALS: Ht 180.3 cm; Wt 82.7 kg
[2018-08-11 18:54] LABS: BASOPHILS 0.6 % (0-2); EOSINOPHILS 2.4 % (0-7); HEMOGLOBIN 12.9 g/dL (13.5-17.5); IMMATURE GRANULOCYTES 0.2 % (0-5); LYMPHOCYTES 31.4 % (15-50); MCH 30.6 pg (26.0-34.0); MCHC 33.1 g/dL (31.0-37.0); MCV 92.4 fL (80.0-100.0); MEAN PLATELET VOLUME 8.9 fL (7.4-10.4); MONOCYTES 8.4 % (2-11); PLATELET COUNT 370 10x3/uL (130-400); RBC 4.22 10x6/uL (4.20-6.10); RDW 16.5 % (11.5-14.5); WBC 8.5 10x3/uL (4.8-10.8)
[2018-08-11 19:16] LABS: ALBUMIN 2.7 g/dL (3.4-5.0); ANION GAP 8.7 mmol/L (8-16); BILIRUBIN - TOTAL 0.41 mg/dL (0.2-1.3); CALCIUM 9.2 mg/dL (8.5-10.1); CARBON DIOXIDE 30.1 mmol/L (21.0-32.0); CREATININE - SERUM 1.2 mg/dL (0.6-1.3); POTASSIUM - SERUM 4.8 mmol/L (3.5-5.1); PROTEIN - SERUM 7.8 g/dL (6.4-8.2)
[2018-08-11 23:11] LABS: ERYTHROCYTE SEDIMENTATION RATE 51 mm/hr (0-20)
[2018-08-11 23:15] VITALS: BP 136/68
== END 2018-08-11 23:43 | disposition other institution (70) ==
LOC: D.ER 15:20
PROVIDERS: Emergency Medicine; Family Medicine
DX: M86.18 Other acute osteomyelitis, other site (principal); L89.229 Pressure ulcer of left hip, unspecified stage; I10 Essential (primary) hypertension; J44.9 Chronic obstructive pulmonary disease, unspecified; Z85.9 Personal history of malignant neoplasm, unspecified; F17.200 Nicotine dependence, unspecified, uncomplicated

== ENCOUNTER 2021-02-19 12:28 | Inpatient (IN) | payer OTHER ==
[~2021-02-19] VITALS: Ht 180.3 cm; Wt 81.6 kg
[2021-02-19 13:43] LABS: ANION GAP 9.6 mmol/L (8-16); BASOPHILS 0.4 % (0-2); CALCIUM 8.4 mg/dL (8.5-10.1); CARBON DIOXIDE 27.8 mmol/L (21.0-32.0); CREATININE - SERUM 1.2 mg/dL (0.6-1.3); EOSINOPHILS 8.2 % (0-7); HEMATOCRIT 32.4 % (42.0-54.0); HEMOGLOBIN 9.8 g/dL (13.5-17.5); IMMATURE GRANULOCYTES 0.3 % (0-5); LYMPHOCYTE ABS# 1.75 10x3/uL (1.32-3.57); LYMPHOCYTES 23.8 % (15-50); MCH 26.3 pg (26.0-34.0); MCHC 30.2 g/dL (31.0-37.0); MCV 87.1 fL (80.0-100.0); MEAN PLATELET VOLUME 9.8 fL (7.4-10.4); MONOCYTES 15.5 % (2-11); NEUTROPHIL ABS# 3.82 10x3/uL (1.78-5.38); NEUTROPHILS 51.8 % (40-80); PLATELET COUNT 357 10x3/uL (130-400); POTASSIUM - SERUM 3.4 mmol/L (3.5-5.1); RBC 3.72 10x6/uL (4.20-6.10); RDW 17.9 % (11.5-14.5); WBC 7.4 10x3/uL (4.8-10.8)
[2021-02-19 13:54] LABS: ALBUMIN 2.7 g/dL (3.4-5.0); BILIRUBIN - TOTAL 0.23 mg/dL (0.2-1.3); MAGNESIUM - SERUM 2.3 mg/dL (1.8-2.4); PROTEIN - SERUM 7.5 g/dL (6.4-8.2)
[2021-02-19 14:08] LABS: APTT 32.3 SECONDS (22.8-39.4); INR 1.1 (0.85-1.17); PROTIME 13.1 SECONDS (11.6-15.0)
--- NOTE | 2021-02-19 17:50 | NUR ---
SPOKE TO AMADOR REGARDING PATIENT HAVING BEDBUGS. PATIENT BATHED AND BELONGINGS DOUBLE BAGGED. PATIENT'S LINENS DOUBLE BAGGED AND HOUSEKEEPING NOTIFIED. CALLED GRIFFIN ON FLOOR TO UPDATE.
[2021-02-19 19:08] VITALS: BMI 25.1
[2021-02-19 20:00] VITALS: BP 129/60
[2021-02-20 04:00] VITALS: BP 114/49
[2021-02-20 06:47] LABS: ALBUMIN 2.6 g/dL (3.4-5.0); ANION GAP 11.8 mmol/L (8-16); BILIRUBIN - TOTAL 0.3 mg/dL (0.2-1.3); CALCIUM 8.4 mg/dL (8.5-10.1); CARBON DIOXIDE 28.4 mmol/L (21.0-32.0); CREATININE - SERUM 1.3 mg/dL (0.6-1.3); POTASSIUM - SERUM 3.2 mmol/L (3.5-5.1); PROTEIN - SERUM 7.4 g/dL (6.4-8.2)
[2021-02-20 06:51] LABS: BASOPHILS 0.5 % (0-2); EOSINOPHILS 9.7 % (0-7); HEMATOCRIT 34.6 % (42.0-54.0); HEMOGLOBIN 10.5 g/dL (13.5-17.5); LYMPHOCYTE ABS# 1.79 10x3/uL (1.32-3.57); MCH 26.6 pg (26.0-34.0); MCHC 30.3 g/dL (31.0-37.0); MCV 87.6 fL (80.0-100.0); MEAN PLATELET VOLUME 9.6 fL (7.4-10.4); MONOCYTES 13.9 % (2-11); NEUTROPHIL ABS# 2.59 10x3/uL (1.78-5.38); NEUTROPHILS 44.9 % (40-80); PLATELET COUNT 368 10x3/uL (130-400); RBC 3.95 10x6/uL (4.20-6.10); RDW 18.2 % (11.5-14.5); WBC 5.8 10x3/uL (4.8-10.8)
--- NOTE | 2021-02-20 07:15 | NUR ---
REC'D IN BED AWAKE AND ALERT. RESP EVEN AND UNLABORED WITH NO DISTRESS NOTED. CAN EXPRESS NEEDS AND WANTS. NO C/O NOTED OR VOICED AT THIS TIME. ASSESSMENT COMPLETED. C/L IN REACH AT BEDSIDE.
[2021-02-20 08:44] VITALS: BP 120/58
[2021-02-20 13:32] VITALS: Ht 180.3 cm; Wt 81.6 kg
[2021-02-20 14:00] VITALS: BP 105/50
--- NOTE | 2021-02-20 17:47 | NUR ---
I have reviewed this patient and I concur with the Shift Assessment completed by the Licensed Practical Nurse today this shift.
[2021-02-20 18:13] VITALS: BP 136/73
[2021-02-20 20:00] VITALS: BP 111/55
--- NOTE | 2021-02-21 03:31 | NUR ---
PT LABORER TIN CAN LIGHT REQUESTING ASSISTANCE TO BATHROOM. PT ASKED TO USE A WALKER AND DID WELL HAD A BOWEL MOVEMENT. PT WILL CONT TO BE MONITORED.
[2021-02-21 04:00] VITALS: BP 138/65
[2021-02-21 04:04] LABS: BASOPHILS 0.7 % (0-2); EOSINOPHILS 7.4 % (0-7); HEMATOCRIT 28.8 % (42.0-54.0); HEMOGLOBIN 8.8 g/dL (13.5-17.5); IMMATURE GRANULOCYTES 0.3 % (0-5); LYMPHOCYTE ABS# 2.04 10x3/uL (1.32-3.57); LYMPHOCYTES 28.1 % (15-50); MCH 26.5 pg (26.0-34.0); MCHC 30.6 g/dL (31.0-37.0); MCV 86.7 fL (80.0-100.0); MEAN PLATELET VOLUME 9.3 fL (7.4-10.4); MONOCYTES 11.9 % (2-11); NEUTROPHIL ABS# 3.74 10x3/uL (1.78-5.38); NEUTROPHILS 51.6 % (40-80); PLATELET COUNT 343 10x3/uL (130-400); RBC 3.32 10x6/uL (4.20-6.10); RDW 18.3 % (11.5-14.5); WBC 7.3 10x3/uL (4.8-10.8)
[2021-02-21 04:12] LABS: ALBUMIN 2.2 g/dL (3.4-5.0); ANION GAP 9.9 mmol/L (8-16); BILIRUBIN - TOTAL 0.3 mg/dL (0.2-1.3); CALCIUM 7.9 mg/dL (8.5-10.1); CARBON DIOXIDE 28.3 mmol/L (21.0-32.0); CREATININE - SERUM 1.3 mg/dL (0.6-1.3); MAGNESIUM - SERUM 1.9 mg/dL (1.8-2.4); POTASSIUM - SERUM 3.2 mmol/L (3.5-5.1); PROTEIN - SERUM 6.6 g/dL (6.4-8.2); VANCOMYCIN - TROUGH 20.7 ug/mL (10.0-20.0)
--- NOTE | 2021-02-21 05:27 | NUR ---
I have reviewed this patient and I concur with the Shift Assessment completed by the Licensed Practical Nurse today this shift.
[2021-02-21 07:52] VITALS: BP 140/55
[2021-02-21 08:51] LABS: BACTERIA NONE SEEN HPF (NONE SEEN); BILIRUBIN NEGATIVE (NEGATIVE); KETONE NEGATIVE (NEGATIVE); NITRITE NEGATIVE (NEGATIVE); SQUAMOUS EPITHELIAL RARE HPF (0-4); UROBILINOGEN NORMAL mg/dL (< 2); WHITE CELLS - URINE RARE HPF (0-1)
[2021-02-21 11:20] VITALS: BP 143/66
[2021-02-21 15:56] VITALS: BP 143/72
[2021-02-21 20:00] VITALS: BP 100/58
[2021-02-22] VITALS: BP 114/54
[2021-02-22 04:00] VITALS: BP 94/61
--- NOTE | 2021-02-22 04:00 | NUR ---
PT ECONOMIC CONSULTANT LIGHT REQUEST ASSISTANCE TO THE BATHROOM. PT HAD A LIQUID BOWEL MOVEMENT. PT HAS NO OTHER COMPLAINTS AT THE MOMENT WILL CONT TO MONITOR.
--- NOTE | 2021-02-22 04:06 | NUR ---
I have reviewed this patient and I concur with the Shift Assessment completed by the Licensed Practical Nurse today this shift.
--- NOTE | 2021-02-22 06:13 | NUR ---
PT REFUSE HIS BLOOD SUGAR CHECK MARGO THE NIGHT AND THIS AM HE STATES IS NOT NECESARY.
[2021-02-22 07:05] LABS: ALBUMIN 2.4 g/dL (3.4-5.0); ALKALINE PHOSPHATASE 79 U/L (30-120); ALT (SGPT) 12 U/L (10-68); BASOPHILS 0.8 % (0-2); BILIRUBIN - TOTAL 0.32 mg/dL (0.2-1.3); CALC OSMOLALITY 269 mosm/kg (275-300); CARBON DIOXIDE 25.4 mmol/L (21.0-32.0); CHLORIDE - SERUM 102 mmol/L (98-107); EOSINOPHILS 8.8 % (0-7); GLUCOSE 83 mg/dL (74-106); HEMATOCRIT 27.7 % (42.0-54.0); HEMOGLOBIN 8.5 g/dL (13.5-17.5); IMMATURE GRANULOCYTES 0.3 % (0-5); LYMPHOCYTES 33.1 % (15-50); MAGNESIUM - SERUM 1.9 mg/dL (1.8-2.4); MCH 26.2 pg (26.0-34.0); MCHC 30.7 g/dL (31.0-37.0); MCV 85.5 fL (80.0-100.0); MONOCYTES 14.6 % (2-11); NEUTROPHIL ABS# 3.08 10x3/uL (1.78-5.38); NEUTROPHILS 42.4 % (40-80); PLATELET COUNT 349 10x3/uL (130-400); PROTEIN - SERUM 6.7 g/dL (6.4-8.2); RBC 3.24 10x6/uL (4.20-6.10); SODIUM 136 mmol/L (136-145); UREA NITROGEN 9 mg/dL (7-18); WBC 7.3 10x3/uL (4.8-10.8); eGFR NON AFRICAN AMERICAN 77 mL/min (90-120)
[2021-02-22 07:17] LABS: POTASSIUM - SERUM 2.9 mmol/L (3.5-5.1)
[2021-02-22 08:37] VITALS: BP 134/68
[2021-02-22 12:19] VITALS: BP 117/56
--- NOTE | 2021-02-22 12:52 | NUR ---
Nutrition follow-up: Pt sleeping during RD rounds. Diet order: low sodium Unsure of po intake as no meal intake recorded Labs reviewed +BM Wt: 180# Will continue to provide food choices and honor food preferences within diet restrictions. RDN follow-up: 02/26/21
--- NOTE | 2021-02-22 13:13 | NUR ---
OT NOTE: PT ASLEEP UPON ENTERING ROOM ..REPORTS THAT HE DID NOT SLEEP WELL LAST NIGHT; ASSISTED TO EOB WITH MIN ASSIST FOR L LE MGMT.. PT UNABLE TO MOVE L LE OFF OF BED WITHOUT ASSIST; SIT TO STAND FROM BED WITH WALKER AND MIN ASSIST; AMB TO BATHROOM WITH CGA; TRANSFER TO TOILET WITH MIN ASSIST (PT REPORTS THAT ITS EASIER AT HOME BECAUSE HE HAS A RISER ON HIS TOILET). MOD ASSIST FOR SIT TO STAND FROM TOILET; SET UP FOR TOILET HYGIENE; BACK TO BED WITH MIN ASSIST FOR LE MGMT. PT ABLE TO PERFORM FEEDING AND GROOMING AND UE DRESSING WITH SET UP.. SAUL BRAXTON, OTR/L [phone]
[2021-02-22 17:11] VITALS: BP 111/66
[2021-02-22 19:43] VITALS: BP 125/75
--- NOTE | 2021-02-23 02:26 | NUR ---
PT REFUSE BLOOD SUGAR CHECK AND NEW IV. PT MIGHT BE GOING HOME AND DOESN'T WANT A NEW ONE AT THE MOMENT. PT HAS NO NEEDS AT THE MOMENT.
--- NOTE | 2021-02-23 03:00 | NUR ---
I have reviewed this patient and I concur with the Shift Assessment completed by the Licensed Practical Nurse today this shift.
--- NOTE | 2021-02-23 05:19 | NUR ---
PT REFUSE BLOOD SUGAR CHECK THIS AM.
[2021-02-23 07:24] LABS: ALBUMIN 2.5 g/dL (3.4-5.0); ALKALINE PHOSPHATASE 85 U/L (30-120); ALT (SGPT) 9 U/L (10-68); BILIRUBIN - TOTAL 0.39 mg/dL (0.2-1.3); CALC OSMOLALITY 268 mosm/kg (275-300); CALCIUM 8.4 mg/dL (8.5-10.1); CARBON DIOXIDE 25.4 mmol/L (21.0-32.0); CHLORIDE - SERUM 102 mmol/L (98-107); GLUCOSE 86 mg/dL (74-106); POTASSIUM - SERUM 3.4 mmol/L (3.5-5.1); PROTEIN - SERUM 7.1 g/dL (6.4-8.2); SODIUM 136 mmol/L (136-145); eGFR NON AFRICAN AMERICAN 77 mL/min (90-120)
[2021-02-23 07:25] LABS: UREA NITROGEN 6 mg/dL (7-18)
--- NOTE | 2021-02-23 07:30 | NUR ---
AWAKE AND ALERT. ORIENTED X3. NO C/O AT THIS TIME. LUNGS HAVE CRACKLES AND WHEEZES THROUGHOUT THE LUNG LÓPEZ. NO COUGH NOTED. SKIN IS INTACT WTIHOUT REDNESS EXCEPT LEFT LEG WHICH IS REDDENED AND DARK, SLIGHTLY WARM TO TOUCH. IV TO LEFT FOREARM IS PATENT WITHOUT REDNESS AT INSERTION SITE. VOIDED CLEAR YELLOW URINE IN URINAL. DENIES NEEDS.
[2021-02-23 07:57] LABS: BASOPHILS 0.6 % (0-2); EOSINOPHILS 8.4 % (0-7); HEMATOCRIT 29.4 % (42.0-54.0); HEMOGLOBIN 9.1 g/dL (13.5-17.5); IMMATURE GRANULOCYTES 0.1 % (0-5); LYMPHOCYTES 30.8 % (15-50); MCH 26.4 pg (26.0-34.0); MCV 85.2 fL (80.0-100.0); MEAN PLATELET VOLUME 9.9 fL (7.4-10.4); NEUTROPHIL ABS# 3.36 10x3/uL (1.78-5.38); NEUTROPHILS 47.1 % (40-80); PLATELET COUNT 331 10x3/uL (130-400); RBC 3.45 10x6/uL (4.20-6.10); RDW 17.9 % (11.5-14.5); WBC 7.1 10x3/uL (4.8-10.8)
[2021-02-23 08:09] VITALS: BP 146/67
--- NOTE | 2021-02-23 12:00 | NUR ---
REFUSED TO ALLOW FSBS.
[2021-02-23 12:04] VITALS: BP 106/67
[2021-02-23] MEDS ORDERED: BACTRIM DS TAB1 EAC1 PO (12:26)
--- NOTE | 2021-02-23 14:33 | NUR ---
RESTING QUIETLY IN BED. DENIES NEEDS.
--- NOTE | 2021-02-23 17:39 | NUR ---
DISCHARGED TO HOME AMBULATORY WITH A FRIEND. DISCHARGE INSTRUCTIONS GIVEN BOTH VERBALLY AND WRITTEN. ALL QUESTIONS ANSWERED. PATIENT VERBALIZED UNDERSTANDING OF SAME. IV TO LEFT FOREARM D/C WITH CATHETER INTACT. NEEDED PRESCRIPTIONS ESCRIBED TO PHARMACY OF CHOICE. DISCUSSED WITH MARIOE WHEN HE CAME TO BE SURE THE MEDS WERE PICKED UP. ALL BELONGINGS WITH PATIENT.
--- NOTE | 2021-02-23 17:53 | MORECARE ---
CASE MANAGEMENT DISCHARGE SUMMARY PATIENT: LEONOR BURTON UNIT: [id number] ADM DATE: 02/19/21 AGE: 76 : 46 SEX: M ROOM/BED: D.2211 AUTHOR: JERSON COMBS PHYSICIAN: REFERRING PHYSICIAN: TIFFANIE MARIEE MD DATE OF SERVICE: 02/23/21 Case Management Discharge Planning Summary COMMENTS ENTERED DATE: 02/23/21 17:42 CT COMMENT TYPE: Discharge Planning REVIEWER: Dev Tran CM met with patient to complete DC plan and to evaluate needs. Patient lives independently alone but has family support and help. Patient stated that his home is safe and has electricity and running water. Patient stated that the home has 3 steps to enter and they are able to manage the steps without difficulty. Patient stated that she has no problems paying for medications and she fills her medications at [facility] or [facility]. Patient stated that his primary care physician is Dr. Salcedo. At discharge, the patient plans to return home and feels this is a safe discharge. CM discussed availability of home health, rehab services, and medical equipment. Patient declined HHS, SNF, IPR, and DME. WALLY refusal for Home health services signed and placed on chart. Patient stated that he has a walker, cane, crutches, wheelchair, elevated toilet seat, and shower bench. Patient voiced no other needs at this time and is satisfied with DC plan. Transportation provider at discharge will be with his daughter, Angelica Parsons, . DC IMM delivered, explained, signed by the patient, and placed in chart. Signed form also left with the patient. CM will continue to follow and will assist as needed with dc plans/needs. DCP REVIEW SUMMARY ANTICIPATED D/C DATE: 02/23/2021 EXPECTED LOS : 4 CASE STATUS: DCP Initiated INITIAL REVIEW: 02/19/2021 INITIAL REVIEWER: Dev Tran FINAL DISCHARGE DISPOSITION: : FINAL REVIEWER: FINAL REVIEW DATE: DCP Focus Questions & Answers DCP Evaluation QUESTION: ANSWER Patient gives permission to discuss discharge plans with: (name, relationship and number) : daughter, Angelica Parsons, Patient's ability to cope with chronic illness : d. No chronic illness Patient's current cognitive status: : *Oriented to person, place, situation, time and present Family / Caregiver's ability to cope with chronic illness: : a. Adequate (ability to meet patient's medical needs, ensures patient attends medical appts.) Patient and/or caregiver agree upon recommended discharge plan? : Yes Physical Status: : Independent with ADL's Family / Caregiver's ability to cope with chronic illness: : a. Adequate (ability to meet patient's medical needs, ensures patient attends medical appts.) Functional screen assessment: : Basic needs can adequately be met by self Does the patient have the ability to pay for or attain post discharge needs / services? : Yes Living Arrangements: : Home Alone with Support Is there a likelihood that the patient will require additional services to return to the preadmission environment? : No Equipment needed for post hospitalization: : None Baseline cognitive status: : *Oriented to person, place, situation, time and present Patient with capacity for self-care or can be cared for in same environment as prior to hospitalization? : Yes Physical environment modification needed / anticipated for discharge: : No Medication Management: : Patient states can afford medications Medication Management: : Patient states can read and understand medication labels Pharmacy name(s): : [facility] or [facility] Does Patient have transportation to get home and to follow-up medical appointments when discharged from the hospital? : Yes Would patient like to participate in any Care Coordination programs (if applicable): : Not applicable Does the patient have electricity at home? : Yes Does the patient have running water in their house? : Yes Equipment in use: : Bedside Commode Equipment in use: : Cane - Single Leg Equipment in use: : Crutches Equipment in use: : Shower Chair Equipment in use: : Walker - Rolling Equipment in use: : Wheelchair Mental health screen: : No mental health history DCP Re-evaluation QUESTION: ANSWER Would patient like to participate in any Care Coordination programs (if applicable): : Not applicable PATIENT: LEONOR BURTON ENCOUNTER: [id number] MEDICAL RECORD#: [id number] ADMISSION DATE: 02/19/2021 DISCHARGE DATE: 02/23/2021 ATTENDING MD: TIFFANIE GONZALEZ : AGE: 76 MARITAL STATUS: W DC PLAN ID: [id number] FACILITY: [facility] PRINTED ON: 02/23/21 17:53 CT All edits/amendments must be made on the electronic document DICTATION DATE: 02/23/211752 LEGAL EXECUTIVE ASSISTANT: EDGAR 02/23/211752 RPT#: [id number] DC DATE:02/23/21 STATUS: DIS IN [facility] [address] [place] [address] END OF REPORT
--- NOTE | 2021-02-24 17:08 | MORECARE ---
CASE MANAGEMENT DISCHARGE SUMMARY PATIENT: LEONOR BURTON UNIT: [id number] ADM DATE: 02/19/21 AGE: 76 : 46 SEX: M ROOM/BED: D.2211 AUTHOR: JERSON COMBS PHYSICIAN: REFERRING PHYSICIAN: TIFFANIE MARIEE MD DATE OF SERVICE: 02/24/21 Case Management Discharge Planning Summary COMMENTS ENTERED DATE: 02/23/21 17:42 CT COMMENT TYPE: Discharge Planning REVIEWER: Dev Tran CM met with patient to complete DC plan and to evaluate needs. Patient lives independently alone but has family support and help. Patient stated that his home is safe and has electricity and running water. Patient stated that the home has 3 steps to enter and they are able to manage the steps without difficulty. Patient stated that she has no problems paying for medications and she fills her medications at [place] [facility] or [place] [facility]. Patient stated that his primary care physician is Dr. Salcedo. At discharge, the patient plans to return home and feels this is a safe discharge. CM discussed availability of home health, rehab services, and medical equipment. Patient declined HHS, SNF, IPR, and DME. WALLY refusal for Home health services signed and placed on chart. Patient stated that he has a walker, cane, crutches, wheelchair, elevated toilet seat, and shower bench. Patient voiced no other needs at this time and is satisfied with DC plan. Transportation provider at discharge will be with his daughter, Angelica Parsons, . DC IMM delivered, explained, signed by the patient, and placed in chart. Signed form also left with the patient. CM will continue to follow and will assist as needed with dc plans/needs. DCP REVIEW SUMMARY ANTICIPATED D/C DATE: 02/23/2021 EXPECTED LOS : 4 CASE STATUS: DCP Initiated INITIAL REVIEW: 02/19/2021 INITIAL REVIEWER: Dev Tran FINAL DISCHARGE DISPOSITION: : FINAL REVIEWER: FINAL REVIEW DATE: DCP Focus Questions & Answers DCP Evaluation QUESTION: ANSWER Family / Caregiver's ability to cope with chronic illness: : a. Adequate (ability to meet patient's medical needs, ensures patient attends medical appts.) Patient gives permission to discuss discharge plans with: (name, relationship and number) : daughterAngelica, Patient's ability to cope with chronic illness : d. No chronic illness Patient's current cognitive status: : *Oriented to person, place, situation, time and present Patient and/or caregiver agree upon recommended discharge plan? : Yes Physical Status: : Independent with ADL's Family / Caregiver's ability to cope with chronic illness: : a. Adequate (ability to meet patient's medical needs, ensures patient attends medical appts.) Functional screen assessment: : Basic needs can adequately be met by self Does the patient have the ability to pay for or attain post discharge needs / services? : Yes Living Arrangements: : Home Alone with Support Is there a likelihood that the patient will require additional services to return to the preadmission environment? : No Equipment needed for post hospitalization: : None Baseline cognitive status: : *Oriented to person, place, situation, time and present Patient with capacity for self-care or can be cared for in same environment as prior to hospitalization? : Yes Physical environment modification needed / anticipated for discharge: : No Medication Management: : Patient states can afford medications Medication Management: : Patient states can read and understand medication labels Pharmacy name(s): : [facility] or [place] [facility] Does Patient have transportation to get home and to follow-up medical appointments when discharged from the hospital? : Yes Would patient like to participate in any Care Coordination programs (if applicable): : Not applicable Does the patient have electricity at home? : Yes Does the patient have running water in their house? : Yes Equipment in use: : Bedside Commode Equipment in use: : Cane - Single Leg Equipment in use: : Crutches Equipment in use: : Shower Chair Equipment in use: : Walker - Rolling Equipment in use: : Wheelchair Mental health screen: : No mental health history DCP Re-evaluation QUESTION: ANSWER Would patient like to participate in any Care Coordination programs (if applicable): : Not applicable PATIENT: LEONOR BURTON ENCOUNTER: [id number] MEDICAL RECORD#: [id number] ADMISSION DATE: 02/19/2021 DISCHARGE DATE: 02/23/2021 ATTENDING MD: TIFFANIE GONZALEZ : AGE: 76 MARITAL STATUS: W DC PLAN ID: [id number] FACILITY: [facility] PRINTED ON: 02/24/21 17:08 CT All edits/amendments must be made on the electronic document DICTATION DATE: 02/24/211707 BLOW DOWN OPERATOR: EDGAR 02/24/211707 RPT#: [id number] DC DATE:02/23/21 STATUS: DIS IN [facility] [address] [place] [address] END OF REPORT
== END 2021-02-23 17:42 | disposition home or self-care (01) | DRG 603 ==
LOC: D.ER 12:28 → D.MS 15:54
PROVIDERS: Family Medicine; ADMIT Emergency Medicine; ATTEND Emergency Medicine
DX: L03.116 Cellulitis of left lower limb (principal); E87.6 Hypokalemia; D64.9 Anemia, unspecified; J44.9 Chronic obstructive pulmonary disease, unspecified; I10 Essential (primary) hypertension; F17.200 Nicotine dependence, unspecified, uncomplicated; T14.8XXA Other injury of unspecified body region, initial encounter

== ENCOUNTER 2021-04-08 15:18 | Inpatient (IN) | payer OTHER ==
[~2021-04-08] VITALS: Ht 180.3 cm; Wt 77.1 kg
[~2021-04-08 15:18] MED LIST changes: +BACTRIM DS TAB1 EAC1 PO
[2021-04-08 16:31] LABS: BASOPHILS 1.4 % (0-2); EOSINOPHILS 9.8 % (0-7); HEMATOCRIT 36.6 % (42.0-54.0); HEMOGLOBIN 11.6 g/dL (13.5-17.5); LYMPHOCYTES 23.3 % (15-50); MCH 26.2 pg (26.0-34.0); MCHC 31.8 g/dL (31.0-37.0); MCV 82.4 fL (80.0-100.0); MEAN PLATELET VOLUME 7.1 fL (7.4-10.4); MONOCYTES 12.3 % (2-11); NEUTROPHILS 53.2 % (40-80); RBC 4.44 10x6/uL (4.20-6.10); RDW 19.5 % (11.5-14.5); WBC 7.7 10x3/uL (4.8-10.8)
[2021-04-08 16:39] LABS: PLATELET COUNT 408 10x3/uL (130-400)
[2021-04-08 16:45] LABS: ANION GAP 11.1 mmol/L (8-16); CALCIUM 9.1 mg/dL (8.5-10.1); CARBON DIOXIDE 29.6 mmol/L (21.0-32.0); CREATININE - SERUM 1.1 mg/dL (0.6-1.3); POTASSIUM - SERUM 3.7 mmol/L (3.5-5.1)
[2021-04-08 16:51] LABS: ALBUMIN 3.2 g/dL (3.4-5.0); BILIRUBIN - TOTAL 0.38 mg/dL (0.2-1.3); PROTEIN - SERUM 8.2 g/dL (6.4-8.2)
[2021-04-08 17:02] LABS: APTT 29.7 SECONDS (22.8-39.4); INR 1.06 (0.85-1.17); PROTIME 12.8 SECONDS (11.6-15.0)
[2021-04-08 17:24] LABS: D-DIMER-QUANTITATIVE 5.03 ug/mLFEU (0.20-0.54)
[2021-04-08 18:32] LABS: NITRITE NEGATIVE (NEGATIVE)
[2021-04-08 18:33] LABS: BILIRUBIN NEGATIVE (NEGATIVE); KETONE NEGATIVE (NEGATIVE); UROBILINOGEN NORMAL mg/dL (< 2)
--- NOTE | 2021-04-08 19:14 | NUR ---
PT REPORT GIVEN TO COURTNEY GARCIA
[2021-04-08 20:28] VITALS: BP 130/62
[2021-04-08 22:02] VITALS: BP 128/67
[2021-04-08 23:34] VITALS: BP 104/64; BMI 23.7
[2021-04-09 04:00] VITALS: BP 127/67
[2021-04-09 06:01] LABS: BASOPHILS 0.9 % (0-2); EOSINOPHILS 9.9 % (0-7); HEMATOCRIT 33.2 % (42.0-54.0); HEMOGLOBIN 10.7 g/dL (13.5-17.5); LYMPHOCYTES 26.2 % (15-50); MCH 26.5 pg (26.0-34.0); MCHC 32.2 g/dL (31.0-37.0); MCV 82.3 fL (80.0-100.0); MEAN PLATELET VOLUME 7.6 fL (7.4-10.4); MONOCYTES 14.1 % (2-11); NEUTROPHILS 48.9 % (40-80); PLATELET COUNT 360 10x3/uL (130-400); RBC 4.03 10x6/uL (4.20-6.10); RDW 19.2 % (11.5-14.5); WBC 7.5 10x3/uL (4.8-10.8)
[2021-04-09 06:25] LABS: ALBUMIN 2.6 g/dL (3.4-5.0); ANION GAP 9.3 mmol/L (8-16); BILIRUBIN - TOTAL 0.44 mg/dL (0.2-1.3); CALCIUM 8.6 mg/dL (8.5-10.1); CARBON DIOXIDE 27.5 mmol/L (21.0-32.0); CREATININE - SERUM 1.2 mg/dL (0.6-1.3); MAGNESIUM - SERUM 2.3 mg/dL (1.8-2.4); PHOSPHOROUS 3.3 mg/dL (2.5-4.9); POTASSIUM - SERUM 3.8 mmol/L (3.5-5.1)
--- NOTE | 2021-04-09 07:15 | NUR ---
REC'D IN BED AWAKE AND ALERT. RESP EVEN AND UNLABORED WITH NO DISTRESS NOTED CAN EXPRESS NEEDS AND WANTS. ASSESSMENT COMPLETED. C/L IN REACH AT BEDSIDE.
[2021-04-09 08:38] VITALS: BP 107/53
--- NOTE | 2021-04-09 11:28 | NUR ---
I have reviewed this patient and I concur with the Shift Assessment completed by the Licensed Practical Nurse today this shift.
[2021-04-09 11:45] VITALS: BP 106/45
[2021-04-09 14:51] VITALS: BMI 23.7
[2021-04-09 17:03] VITALS: BP 120/43
[2021-04-09 20:00] VITALS: BP 115/46
[2021-04-10 04:00] VITALS: BP 126/68
[2021-04-10 06:22] LABS: BASOPHILS 1.2 % (0-2); EOSINOPHILS 8.8 % (0-7); HEMATOCRIT 33.5 % (42.0-54.0); HEMOGLOBIN 10.7 g/dL (13.5-17.5); MCH 26.3 pg (26.0-34.0); MCHC 31.9 g/dL (31.0-37.0); MCV 82.5 fL (80.0-100.0); MEAN PLATELET VOLUME 7.5 fL (7.4-10.4); MONOCYTES 11.1 % (2-11); NEUTROPHILS 52.9 % (40-80); PLATELET COUNT 353 10x3/uL (130-400); RBC 4.06 10x6/uL (4.20-6.10); RDW 19.5 % (11.5-14.5); WBC 6.9 10x3/uL (4.8-10.8)
[2021-04-10 07:16] LABS: ALBUMIN 2.5 g/dL (3.4-5.0); ANION GAP 13.2 mmol/L (8-16); BILIRUBIN - TOTAL 0.98 mg/dL (0.2-1.3); CALCIUM 8.2 mg/dL (8.5-10.1); CARBON DIOXIDE 24.6 mmol/L (21.0-32.0); CREATININE - SERUM 1.2 mg/dL (0.6-1.3); MAGNESIUM - SERUM 2.1 mg/dL (1.8-2.4); PHOSPHOROUS 2.8 mg/dL (2.5-4.9); POTASSIUM - SERUM 3.8 mmol/L (3.5-5.1); PROTEIN - SERUM 6.6 g/dL (6.4-8.2)
[2021-04-10 08:23] VITALS: BP 128/59
--- NOTE | 2021-04-10 10:43 | NUR ---
PATIENT WALKED AROUND THE ROOM TO THE BATHROOM WITH HIS WALKER WITH CGA
--- NOTE | 2021-04-10 11:33 | NUR ---
RESTING,WITHOUT NEEDS.CALL LIGHT IN REACH
[2021-04-10 11:48] LABS: INR 1.1 (0.85-1.17); PROTIME 13.1 SECONDS (11.6-15.0)
[2021-04-10 12:09] VITALS: BP 113/44
--- NOTE | 2021-04-10 15:59 | NUR ---
TOMMY VENCES APN PLACED 20GA SALINE LOCK TO LEFT FOREARM WITH ULTRASOUND MACHINE.
[2021-04-10 17:02] VITALS: BP 135/60
[2021-04-10 20:00] VITALS: BP 121/40
[2021-04-11] VITALS: BP 126/43
[2021-04-11 04:00] VITALS: BP 123/54
[2021-04-11 07:14] LABS: BASOPHILS 1.6 % (0-2); EOSINOPHILS 11.3 % (0-7); HEMATOCRIT 33.4 % (42.0-54.0); HEMOGLOBIN 10.8 g/dL (13.5-17.5); LYMPHOCYTES 18.5 % (15-50); MCH 26.7 pg (26.0-34.0); MCHC 32.3 g/dL (31.0-37.0); MCV 82.9 fL (80.0-100.0); MONOCYTES 11.4 % (2-11); NEUTROPHILS 57.2 % (40-80); PLATELET COUNT 367 10x3/uL (130-400); RBC 4.04 10x6/uL (4.20-6.10); RDW 18.9 % (11.5-14.5); WBC 8.4 10x3/uL (4.8-10.8)
[2021-04-11 07:30] LABS: ALBUMIN 2.7 g/dL (3.4-5.0); ANION GAP 15.6 mmol/L (8-16); BILIRUBIN - TOTAL 0.72 mg/dL (0.2-1.3); CALCIUM 8.2 mg/dL (8.5-10.1); CARBON DIOXIDE 24.3 mmol/L (21.0-32.0); CREATININE - SERUM 1.1 mg/dL (0.6-1.3); MAGNESIUM - SERUM 2.1 mg/dL (1.8-2.4); POTASSIUM - SERUM 3.9 mmol/L (3.5-5.1); PROTEIN - SERUM 6.7 g/dL (6.4-8.2)
[2021-04-11 08:27] VITALS: BP 129/72
[2021-04-11 10:12] LABS: HEPATITIS C ANTIBODY <0.1 S/CO RAT (0.0-0.9)
--- NOTE | 2021-04-11 13:26 | NUR ---
OT NOTE: PT COMPLETED SUPINE TO SIT WITH SBA-SPV. PT COMPLETED SIT TO STAND WITH SBA. PT COMPLETED EOB SITTING BALANCE WITH FUNCTIONAL TASKS WITH SPV. CL IN REACH. [phone] ADAM RICE COTA
--- NOTE | 2021-04-11 13:43 | NUR ---
PATIENT ABLE TO GET HIMSELF UP TO BEDSIDE AND TO STAND, PATIENT WOULD ONLY TAKE A FEW STEPS FORWARD AND BACK WITH CGA WHILE USING WALKER.
[2021-04-11 16:50] VITALS: BP 127/59
[2021-04-11 20:39] VITALS: BP 136/50
--- NOTE | 2021-04-11 23:45 | NUR ---
ASSESSED AT THE BEGINNING OF THE SHIFT. PT IS ALERT AND ORIENTED, ABLE TO VERBALIZE NEEDS. HE IS TO BE NPO AT MIDNIGHT FOR A CENTRAL LINE IN THE AM. ORDER NOTED TO NOT WEAR SCDS BECAUSE THEY ARE CONTRAINDICATED. ORDERED CREAM FOR HIS FOREARM RASH NOTED BUT HE STATED IT WAS NOT HELPING. COLACE AND SENOKOT WERE REFUSED BY PATIENT. HE IS RESTING QUIET AT THIS TIME.
[2021-04-12 06:00] LABS: BASOPHILS 1.9 % (0-2); EOSINOPHILS 14.7 % (0-7); HEMATOCRIT 32.5 % (42.0-54.0); HEMOGLOBIN 10.6 g/dL (13.5-17.5); LYMPHOCYTES 18.7 % (15-50); MCHC 32.5 g/dL (31.0-37.0); MCV 83.1 fL (80.0-100.0); MEAN PLATELET VOLUME 7.8 fL (7.4-10.4); MONOCYTES 12.1 % (2-11); NEUTROPHILS 52.6 % (40-80); RBC 3.92 10x6/uL (4.20-6.10); RDW 19.4 % (11.5-14.5); WBC 8.8 10x3/uL (4.8-10.8)
[2021-04-12 06:04] LABS: PLATELET COUNT 277 10x3/uL (130-400)
--- NOTE | 2021-04-12 06:09 | NUR ---
HAS BEEN NPO SINCE MIDNIGHT, SIGNED HIS PERMIT AND ALL REQUIRED SUPPLIES ARE READY FOR HIS CENTRAL LINE. BENADRYL WAS GIVEN EARLIER IN THE NIGHT FOR THE ITCHING IN HIS LEGS AND ARMS. WE HAVE THEM ON CHUCKS BECAUSE OF THE WEEPING FROM THEM.
[2021-04-12 08:48] VITALS: BP 129/69
[2021-04-12 09:44] LABS: ALBUMIN 2.6 g/dL (3.4-5.0); ANION GAP 13.2 mmol/L (8-16); BILIRUBIN - TOTAL 0.44 mg/dL (0.2-1.3); CALCIUM 8.4 mg/dL (8.5-10.1); CARBON DIOXIDE 23.1 mmol/L (21.0-32.0); CREATININE - SERUM 1.3 mg/dL (0.6-1.3); MAGNESIUM - SERUM 2.1 mg/dL (1.8-2.4); PHOSPHOROUS 2.1 mg/dL (2.5-4.9); POTASSIUM - SERUM 3.3 mmol/L (3.5-5.1)
[2021-04-12 10:03] LABS: INR 1.07 (0.85-1.17); PROTIME 12.8 SECONDS (11.6-15.0)
[2021-04-12 10:04] LABS: APTT 32.5 SECONDS (22.8-39.4)
[2021-04-12 11:56] VITALS: BP 123/79
--- NOTE | 2021-04-12 15:00 | NUR ---
GT BELT, PATIENT ABLE TO GET UP TO BEDSIDE BY HIMSELF. PATIENT MIN ASST TO STAND AND WALK 60 FEET USING WALKER.
[2021-04-12 16:54] VITALS: BP 119/55
--- NOTE | 2021-04-12 16:56 | NUR ---
OT NOTE: PT COMPLETED ADL MOB WITH SBA-CGA. PT COMPLETED SIT TO STAND WITH CGA. PT COMPLETED UB HYGIENE TASKS WITH SETUP. CL IN REACH. [phone] THANK YOU,LUIS FERNANDO ARREOLA
[2021-04-12 20:00] VITALS: BP 111/53
--- NOTE | 2021-04-13 00:18 | NUR ---
ASSESSED AT THE BEGINNING OF THE SHIFT. PT IS ALERT AND ORIENTED, ABLE TO VERBALZE NEEDS. HE IS UNABLE TO MOVE HIS LEFT HIP DUE TO THE PROTHESIS BEING REMOVED. BOTH ARMS,LEGS AND CHEST HAVE AN ITCHING RASH WHICH WE ARE PUTTING ORDERED CREAMS ON. TELEMETRY IS SHOWING SR IN THE 70'S. STILL NO SCD'S BECAUSE CONTRAINDICATED.RESTING QUIET AT THIS TIME.
[2021-04-13 07:14] LABS: HAPTOGLOBIN 204 mg/dL (34-355)
[2021-04-13 07:45] LABS: BASOPHILS 1.3 % (0-2); EOSINOPHILS 18.1 % (0-7); HEMATOCRIT 31.2 % (42.0-54.0); HEMOGLOBIN 9.9 g/dL (13.5-17.5); LYMPHOCYTES 21.1 % (15-50); MCH 26.5 pg (26.0-34.0); MCHC 31.7 g/dL (31.0-37.0); MCV 83.7 fL (80.0-100.0); MEAN PLATELET VOLUME 7.7 fL (7.4-10.4); MONOCYTES 12.2 % (2-11); NEUTROPHILS 47.3 % (40-80); RBC 3.73 10x6/uL (4.20-6.10); RDW 19.6 % (11.5-14.5); WBC 7.9 10x3/uL (4.8-10.8)
[2021-04-13 07:52] LABS: ALBUMIN 2.5 g/dL (3.4-5.0); ANION GAP 12.4 mmol/L (8-16); BILIRUBIN - TOTAL 0.31 mg/dL (0.2-1.3); CALCIUM 8.1 mg/dL (8.5-10.1); CARBON DIOXIDE 24.5 mmol/L (21.0-32.0); CREATININE - SERUM 1.2 mg/dL (0.6-1.3); MAGNESIUM - SERUM 2.2 mg/dL (1.8-2.4); PROTEIN - SERUM 6.6 g/dL (6.4-8.2)
[2021-04-13 07:53] LABS: PHOSPHOROUS 3.1 mg/dL (2.5-4.9); POTASSIUM - SERUM 3.9 mmol/L (3.5-5.1)
[2021-04-13 08:00] LABS: PLATELET COUNT 349 10x3/uL (130-400)
[2021-04-13 09:04] VITALS: BP 123/81
[2021-04-13 13:56] VITALS: BP 111/40
[2021-04-13 18:08] LABS: ANA REFLEX - DIRECT Negative (Negative)
[2021-04-13 18:30] VITALS: BP 143/55
--- NOTE | 2021-04-13 19:26 | NUR ---
PATIENT RESTING IN BED WITH NO S/S OF DISTRESS AND DENIES NEEDS AT THIS TIME. BED IN LOWEST POSITION AND CALL LIGHT IN REACH. ENCOURAGED PATIENT TO CALL WITH NEEDS.
[2021-04-13 20:00] VITALS: BP 116/52
--- NOTE | 2021-04-13 20:32 | NUR ---
ADMINISTERED MEDS PER ORDERS. PATIENT VINCENZO WELL. ENCOURAGED PATIENT TO CALL WITH NEEDS.
[2021-04-14 05:00] VITALS: BP 138/74
[2021-04-14 06:21] LABS: BASOPHILS 1.6 % (0-2); EOSINOPHILS 14.4 % (0-7); HEMATOCRIT 31.4 % (42.0-54.0); LYMPHOCYTES 22.3 % (15-50); MCH 26.6 pg (26.0-34.0); MCV 83.3 fL (80.0-100.0); MEAN PLATELET VOLUME 7.8 fL (7.4-10.4); MONOCYTES 9.6 % (2-11); NEUTROPHILS 52.1 % (40-80); PLATELET COUNT 381 10x3/uL (130-400); RBC 3.77 10x6/uL (4.20-6.10); RDW 19.9 % (11.5-14.5); WBC 9.3 10x3/uL (4.8-10.8)
[2021-04-14 06:34] LABS: ALBUMIN 2.7 g/dL (3.4-5.0); BILIRUBIN - TOTAL 0.44 mg/dL (0.2-1.3); CALCIUM 8.4 mg/dL (8.5-10.1); CARBON DIOXIDE 25.2 mmol/L (21.0-32.0); CREATININE - SERUM 1.3 mg/dL (0.6-1.3); PROTEIN - SERUM 7.4 g/dL (6.4-8.2)
[2021-04-14 06:41] LABS: POTASSIUM - SERUM 3.2 mmol/L (3.5-5.1)
[2021-04-14 12:04] VITALS: BP 116/53
--- NOTE | 2021-04-14 13:00 | NUR ---
ALERT AND ORIENTED WITH DECREASE ERRYTHEMA AND UTICARIA TO BUE AND BLE WITH ASSSIT OF TOPICAL OINTMENT. UNABOOTS APPLIED TO BLE PER ORDER. ENCOURAGD TO USE CALL LIGHT FOR ASSIST.
[2021-04-14 13:08] LABS: ACLA - IGG AB <9 GPL U/mL (0-14); ACLA - IGM AB <9 MPL U/mL (0-12)
[2021-04-14 16:07] LABS: ACID FAST SMEAR Negative (()); AFB SPECIMEN PROCESSING Tissue Grinding (())
[2021-04-14 17:32] VITALS: BP 134/58
--- NOTE | 2021-04-14 19:17 | NUR ---
PATIENT RESTING IN BED WITH NO S/S OF DISTRESS. BROUGHT PATIENT ICE PER HIS REQUEST. PATIENT DENIES OTHER NEEDS AT THIS TIME. BED IN LOWEST POSITION AND CALL LIGHT IN REACH. ENCOURAGED PATIENT TO CALL WITH NEEDS.
--- NOTE | 2021-04-14 21:25 | NUR ---
ADMINISTERED MEDS PER ORDERS. PATIENT VINCENZO WELL. ENCOURAGED TO CALL WITH NEEDS.
[2021-04-15 04:00] VITALS: BP 162/53
[2021-04-15 06:26] LABS: BASOPHILS 0.8 % (0-2); EOSINOPHILS 10.9 % (0-7); HEMATOCRIT 30.4 % (42.0-54.0); HEMOGLOBIN 9.8 g/dL (13.5-17.5); LYMPHOCYTES 21.1 % (15-50); MCH 26.8 pg (26.0-34.0); MCHC 32.2 g/dL (31.0-37.0); MEAN PLATELET VOLUME 7.7 fL (7.4-10.4); NEUTROPHILS 53.2 % (40-80); PLATELET COUNT 380 10x3/uL (130-400); RBC 3.66 10x6/uL (4.20-6.10); RDW 19.5 % (11.5-14.5); WBC 10.6 10x3/uL (4.8-10.8)
[2021-04-15 06:48] LABS: ALBUMIN 2.8 g/dL (3.4-5.0); ANION GAP 13.3 mmol/L (8-16); BILIRUBIN - TOTAL 0.53 mg/dL (0.2-1.3); CALCIUM 8.7 mg/dL (8.5-10.1); CREATININE - SERUM 1.2 mg/dL (0.6-1.3); POTASSIUM - SERUM 3.3 mmol/L (3.5-5.1); PROTEIN - SERUM 7.5 g/dL (6.4-8.2)
--- NOTE | 2021-04-15 07:55 | NUR ---
PT SITTING UP IN BED. IV SITED AT THIS TIME TO LEFT WRIST X 1 STICK. 22G, GOOD BLOOD RETURN, EASILY FLUSHED. PT VINCENZO WELL. DENIES FURTHER NEEDS AT THIS TIME. CL WITHIN REACH. ENCOURGED TO CALL WITH NEEDS. CONTINUE POC
[2021-04-15 08:45] VITALS: Ht 180.3 cm; Wt 77.1 kg
[2021-04-15 08:51] VITALS: BP 138/74
--- NOTE | 2021-04-15 11:15 | NUR ---
GT BELT, PATIENT MIN ASST TO STAND AND TO WALK 50 FEET USING WALKER.
[2021-04-15 12:37] VITALS: BP 143/65
--- NOTE | 2021-04-15 14:12 | NUR ---
OT NOTE: PT IS REQUIRED CUES FOR INCREASED SAFETY. PT COMPLETED SUPINE TO SIT WITH SBA. PT COMPLETED SIT TO STAND WITH SBA. PT COMPLETED EOB SITTING WITH SPV. PT COMPLETED KATHERINE SOCKS WITH SETUP FOR RLE AND TOTAL A FOR LLE. PT COMPLETED HAIR GROOMING WITH SETUP. PT COMPLETED FACE HYGIENE WITH SETUP. [phone] THANK YOU,LUIS FERNANDO ARREOLA
[2021-04-15 18:03] VITALS: BP 142/72
[2021-04-15 20:00] VITALS: BP 144/57
--- NOTE | 2021-04-15 21:36 | NUR ---
ADMINISTERED MEDS PER ORDERS. PATIENT VINCENZO WELL. ENCOURAGED TO CALL WITH NEEDS.
--- NOTE | 2021-04-15 22:51 | NUR ---
PATIENT REFUSED TELE MONITOR
[2021-04-16] VITALS: BP 129/61
[2021-04-16 03:06] LABS: LUPUS - INTERPRETATION Comment: (()); LUPUS - dRVVT 32.2 sec (0.0-47.0); PTT-LA 40.2 sec (0.0-51.9)
[2021-04-16 04:00] VITALS: BP 131/58
[2021-04-16 07:11] LABS: BASOPHILS 1.3 % (0-2); EOSINOPHILS 9.7 % (0-7); HEMATOCRIT 31.4 % (42.0-54.0); HEMOGLOBIN 9.9 g/dL (13.5-17.5); MCH 26.4 pg (26.0-34.0); MCHC 31.6 g/dL (31.0-37.0); MCV 83.5 fL (80.0-100.0); MEAN PLATELET VOLUME 8.1 fL (7.4-10.4); PLATELET COUNT 395 10x3/uL (130-400); RBC 3.75 10x6/uL (4.20-6.10); WBC 10.3 10x3/uL (4.8-10.8)
[2021-04-16 07:27] LABS: ALBUMIN 2.6 g/dL (3.4-5.0); ANION GAP 12.7 mmol/L (8-16); BILIRUBIN - TOTAL 0.34 mg/dL (0.2-1.3); CALCIUM 8.1 mg/dL (8.5-10.1); CARBON DIOXIDE 24.8 mmol/L (21.0-32.0); CREATININE - SERUM 1.3 mg/dL (0.6-1.3); POTASSIUM - SERUM 3.5 mmol/L (3.5-5.1); PROTEIN - SERUM 7.2 g/dL (6.4-8.2)
--- NOTE | 2021-04-16 07:31 | NUR ---
RESTING IN BED WITH EYES CLOSED, BREATHING COMFORTABLY WITH NO S/S OF DISTRESS AT THIS TIME. IV LOCATED TO LEFT FOREARM CURRENTLY RUNNING NS @ [facility]. UNNA BOOTS PRESENT ON BLE. WILL CONT TO MONITOR.
[2021-04-16 08:36] VITALS: BP 152/77
[2021-04-16 10:08] LABS: PROTEIN S - FREE 84 % (57-157); PROTEIN S - TOTAL 70 % (60-150)
[2021-04-16 12:05] VITALS: BP 117/78
[2021-04-16 13:09] LABS: PROTEIN S - FREE 89 % (57-157); PROTEIN S - FUNCTIONAL 87 % (63-140); PROTEIN S - TOTAL 65 % (60-150)
[2021-04-16 14:09] LABS: ANGIOTENSIN CONVERTING ENZYME 56 U/L (14-82)
--- NOTE | 2021-04-16 15:10 | NUR ---
CALLED PHARMACY TO GET UNNA FLEX BROUGHT UP TO CHANGE DRESSINGS TO BLE, STATES WE ARE OUT AND IT WILL BE TOMORROW BEFORE WE HAVE MORE IN TO LEAVE ON WHAT IS ALEADY IN PLACE FOR NOW. WILL CONT TO MONITOR.
--- NOTE | 2021-04-16 15:27 | NUR ---
SPOKE WITH ABOUT UNNABOOTS ORDER, WAS INSTRUCTED TO ORDER DRESSING CHANGED ONCE PER WEEKS FOR 6 WEEKS.
[2021-04-16 17:04] VITALS: BP 149/92
[2021-04-16 20:00] VITALS: BP 149/74
--- NOTE | 2021-04-16 20:00 | NUR ---
PT SITTING UP IN BED WITHOUT DISTRESS, AOX4. DENIES PAIN OR NEEDS AT THIS TIME. CL IN REACH
[2021-04-17] VITALS: BP 133/64
[2021-04-17 04:00] VITALS: BP 145/79
[2021-04-17 06:51] LABS: BASOPHILS 1.4 % (0-2); EOSINOPHILS 11.1 % (0-7); HEMATOCRIT 29.9 % (42.0-54.0); HEMOGLOBIN 9.6 g/dL (13.5-17.5); LYMPHOCYTES 24.1 % (15-50); MCH 26.8 pg (26.0-34.0); MCHC 32.3 g/dL (31.0-37.0); MCV 83.1 fL (80.0-100.0); MONOCYTES 13.4 % (2-11); PLATELET COUNT 399 10x3/uL (130-400); RBC 3.59 10x6/uL (4.20-6.10); RDW 19.4 % (11.5-14.5); WBC 9.7 10x3/uL (4.8-10.8)
[2021-04-17 06:58] LABS: ALBUMIN 2.6 g/dL (3.4-5.0); ANION GAP 13.7 mmol/L (8-16); BILIRUBIN - TOTAL 0.33 mg/dL (0.2-1.3); CALCIUM 8.6 mg/dL (8.5-10.1); CREATININE - SERUM 1.1 mg/dL (0.6-1.3); POTASSIUM - SERUM 3.7 mmol/L (3.5-5.1); PROTEIN - SERUM 7.5 g/dL (6.4-8.2)
--- NOTE | 2021-04-17 07:35 | NUR ---
PT SITTING UP IN BED BRUSHING TV. RESP EVEN AND UNLABORED. DENIES PAIN AT THIS TIME. SALINE LOC TO LEFT FOREARM. SITE WITHOUT REDNESS OR EDEMA. TOMMY BOOTS NOTED TO BILAT LOWER EXTREMITIES. DENIES FURTHER NEEDS AT THIS TIME. CL WITHIN REACH. ENCOURAGED TO CALL WITH NEEDS. CONTINUE POC
[2021-04-17 08:16] VITALS: BP 128/62
[2021-04-17 10:12] LABS: FUNGUS STAIN Final report (())
--- NOTE | 2021-04-17 10:21 | NUR ---
IV INFILTRATED TO LEFT FOREARM. IV DISCONTINUED CATH INTACT. TALKED WITH PT REGARDING STARTING ANOTHER IV TO CONTINUE IV ANTIBIOTICS. PT VOICES "THIS IS THE SECOND ONE THATS GONE. I WANT TO WAIT AND TALK TO THE DR BEFORE WE START ANOTHER ONE."
[2021-04-17 12:11] LABS: PROTEIN C - ANTIGEN 77 % (60-150); PROTEIN C - FUNCTIONAL 74 % (73-180)
[2021-04-17 12:43] VITALS: BP 120/49
--- NOTE | 2021-04-17 13:29 | NUR ---
Nutrition reassessment: Diet order: Regular PO intake 100% of last 3 meals +BM + fluid balance per I/O Wt: 170# Estimated needs, nutrition diagnosis, goals and interventions remain the same as initial assessment on 04/09/21. Pt currently meeting nutritional goals. No new wt to assess Recommend: Please get a current wt to EMR. RDN will follow-up on continued progress toward nutrition goals in 5-7 days.
--- NOTE | 2021-04-17 13:36 | NUR ---
GT BELT, PATIENT ABLE TO GET TO BEDSIDE BY HIMSELF. PATIENT STOOD WITH CGA AND WALKED IN [place] 50 FEET USING WALKER.
--- NOTE | 2021-04-17 14:41 | NUR ---
OT NOTE : PT DOING WELL. PERFORMING SUPINE TO SIT AND SIT TO SUPINE WITHOUT ASSIST; DOING WELL WITH WALKER MGMT IN ROOM AND TO BATHROOM WITH USE OF PLATFORM WALKER ON R SIDE. TOILELTING WITH SBA; GROOMING ACT AT SINK WITH SBA. ABLE TO KATHERINE AND DOFF SOCKS AND GOWN WITH SET UP. SAUL BRAXTON, OTR/L 1140-12
[2021-04-17 16:38] VITALS: BP 139/64
[2021-04-17 20:00] VITALS: BP 132/65
--- NOTE | 2021-04-17 20:00 | NUR ---
PT SITTING UP IN BED WITHOUT DISTRESS, AOX4. DENIES PAIN OR NEEDS AT THIS TIME. UNNA BOOTS CDI TO BILAT LOWER LEGS. WITHOUT IV ACCESS AT THIS TIME. DOES NOT WANT ANOTHER IV AT THIS TIME. STATES HE IS TO BE PUT ON PO ABX
[2021-04-17 20:07] LABS: FUNGAL - ASP FLAVUS Negative (Neg:<1:1); FUNGAL - ASP NIGER Negative (Neg:<1:1); FUNGAL - ASPER FUMIGATUS Negative (Neg:<1:1)
[2021-04-18 04:00] VITALS: BP 163/49
[2021-04-18 06:22] LABS: BASOPHILS 2.2 % (0-2); EOSINOPHILS 10.6 % (0-7); HEMATOCRIT 30.9 % (42.0-54.0); HEMOGLOBIN 9.7 g/dL (13.5-17.5); LYMPHOCYTES 22.7 % (15-50); MCH 26.4 pg (26.0-34.0); MCHC 31.2 g/dL (31.0-37.0); MCV 84.4 fL (80.0-100.0); MONOCYTES 14.2 % (2-11); NEUTROPHILS 50.3 % (40-80); PLATELET COUNT 434 10x3/uL (130-400); RBC 3.66 10x6/uL (4.20-6.10); RDW 19.7 % (11.5-14.5); WBC 9.4 10x3/uL (4.8-10.8)
[2021-04-18 07:01] LABS: ALBUMIN 2.8 g/dL (3.4-5.0); ANION GAP 13.6 mmol/L (8-16); BILIRUBIN - TOTAL 0.28 mg/dL (0.2-1.3); CALCIUM 8.3 mg/dL (8.5-10.1); CARBON DIOXIDE 24.9 mmol/L (21.0-32.0); CREATININE - SERUM 1.1 mg/dL (0.6-1.3); POTASSIUM - SERUM 4.5 mmol/L (3.5-5.1); PROTEIN - SERUM 7.2 g/dL (6.4-8.2)
--- NOTE | 2021-04-18 08:40 | NUR ---
PT. RECEIVED RESTING IN BED, AWAKE AND ALERT. REDDENED RASH NOTICED THROUGHOUT BODY. NO DISTRESS, PAIN OR NEEDS VOICED. LEGS WRAPPED WITH UNNA BOOTS CLEAN AND DRY AND INTACT. NO IV SITE. CL IN REACH, SRUPX2.
[2021-04-18 09:52] VITALS: BP 133/69
--- NOTE | 2021-04-18 10:00 | NUR ---
DISCUSSED WITH Yeison ANDREW APN ABOUT PT'S REFUSAL OF IV AND WANTING TO BEGIN PO ANTIBIOTICS.
[2021-04-18 12:36] VITALS: BP 99/62
--- NOTE | 2021-04-18 14:32 | NUR ---
GT BELT, PATIENT ABLE TO GET UP TO BEDSIDE AND STAND BY HIMSELF. PATIENT WALKED 80 FEET USING WALKER WITH CGA. PATIENT TOOK THREE SHORT STANDING REST BREAKS.
[2021-04-18 16:33] VITALS: BP 141/65
--- NOTE | 2021-04-18 18:42 | NUR ---
OT NOTE: PT COMPLETED SUPINE TO SIT WITH SBA-SPV. PT COMPLETED EOB SITTING WITH SPV. PT COMPLETED FACE HYGIENE WITH SETUP. PT COMPLETED HAND HYGIENE WITH SETUP. [phone] ADAM RICE COTA
--- NOTE | 2021-04-18 20:00 | NUR ---
PT SITTING UP IN BED WITHOUT DISTRESS, AOX4. UNNA BOOTS ON BILAT, DRESSING CDI. DENIES PAIN OR NEEDS AT THIS TIME. CL IN REACH
[2021-04-18 20:12] VITALS: BP 142/73
[2021-04-19 04:00] VITALS: BP 128/72
[2021-04-19 07:09] LABS: ALBUMIN 2.6 g/dL (3.4-5.0); ANION GAP 12.4 mmol/L (8-16); BILIRUBIN - TOTAL 0.32 mg/dL (0.2-1.3); CALCIUM 8.4 mg/dL (8.5-10.1); CARBON DIOXIDE 25.1 mmol/L (21.0-32.0); CREATININE - SERUM 1.2 mg/dL (0.6-1.3); PROTEIN - SERUM 7.5 g/dL (6.4-8.2)
[2021-04-19 07:16] LABS: EOSINOPHILS 8.1 % (0-7); HEMATOCRIT 28.4 % (42.0-54.0); HEMOGLOBIN 9.1 g/dL (13.5-17.5); LYMPHOCYTES 22.2 % (15-50); MCH 26.9 pg (26.0-34.0); MCHC 32.1 g/dL (31.0-37.0); MCV 83.6 fL (80.0-100.0); MEAN PLATELET VOLUME 7.9 fL (7.4-10.4); MONOCYTES 14.4 % (2-11); NEUTROPHILS 54.3 % (40-80); PLATELET COUNT 438 10x3/uL (130-400); RDW 19.6 % (11.5-14.5); WBC 9.4 10x3/uL (4.8-10.8)
[2021-04-19 07:18] LABS: POTASSIUM - SERUM 3.5 mmol/L (3.5-5.1)
--- NOTE | 2021-04-19 08:30 | NUR ---
PT RECEIVED AWAKE AND ORIENATED IN BED. RHOCHI NOTED TO BOTH LUNGS. RASH ON CHEST AND BACK, UNNA BOOTS ON BLE DRY AND INTACT. NO PAIN OR NEEDS VOICED. CL IN REACH, SR UPX2.
[2021-04-19 08:42] VITALS: BP 140/66
[2021-04-19 12:53] VITALS: BP 121/57
[2021-04-19 17:05] VITALS: BP 131/54
--- NOTE | 2021-04-19 17:10 | NUR ---
OT NOTE: PT REQUIRED MOD A FOR SIT TO STAND FROM TOILET. PT REQUIRED SBA FOR TOILET HYGIENE. PT COMPLETED HAND HYGIENE WITH SETUP. PT C/O R ELBOW STIFFNESS. PT COMPLETED GENTEL STRETCHING TOLERATED WITH AROM. PT COMPLETED ADL MOBILITY WITH WALKER WITH CGA. CL IN REACH. 132-2 THANK YOU,LUIS FERNANDO ARREOLA
[2021-04-19 19:09] LABS: FACTOR II DNA ANALYSIS Negative (())
[2021-04-19 21:57] VITALS: BP 106/61
--- NOTE | 2021-04-20 03:55 | NUR ---
I have reviewed this patient and I concur with the Shift Assessment completed by the Licensed Practical Nurse today this shift.
[2021-04-20 04:33] LABS: BASOPHILS 1.3 % (0-2); EOSINOPHILS 4.6 % (0-7); HEMATOCRIT 28.8 % (42.0-54.0); HEMOGLOBIN 9.3 g/dL (13.5-17.5); LYMPHOCYTES 19.7 % (15-50); MCH 26.5 pg (26.0-34.0); MCHC 32.2 g/dL (31.0-37.0); MCV 82.3 fL (80.0-100.0); MEAN PLATELET VOLUME 7.2 fL (7.4-10.4); MONOCYTES 16.1 % (2-11); NEUTROPHILS 58.3 % (40-80); PLATELET COUNT 459 10x3/uL (130-400); RDW 19.1 % (11.5-14.5); WBC 9.4 10x3/uL (4.8-10.8)
[2021-04-20 04:50] LABS: ALBUMIN 2.6 g/dL (3.4-5.0); ANION GAP 11.3 mmol/L (8-16); BILIRUBIN - TOTAL 0.34 mg/dL (0.2-1.3); CALCIUM 8.3 mg/dL (8.5-10.1); CREATININE - SERUM 1.2 mg/dL (0.6-1.3); POTASSIUM - SERUM 4.3 mmol/L (3.5-5.1); PROTEIN - SERUM 7.7 g/dL (6.4-8.2)
[2021-04-20 06:38] VITALS: BP 135/66
--- NOTE | 2021-04-20 09:18 | NUR ---
PT RESTING QUIETLY IN BED. NO ACUTE DISTRESS NOTED. PT DENIES PAIN AT THIS TIME. TOMMY BOOTS NOTED TO BILAT LOWER EXTREMITIES. NO FURTHER NEEDS VOICED AT THIS TIME. CL WITHIN REACH. ENCOURAGED TO CALL WITH NEEDS. CONTINUE POC
[2021-04-20 09:28] VITALS: BP 144/63
[2021-04-20 12:16] VITALS: BP 144/68
[2021-04-20 17:08] VITALS: BP 128/64
[2021-04-20 20:00] VITALS: BP 121/48
[2021-04-21 00:53] VITALS: BP 139/70
[2021-04-21 04:00] VITALS: BP 123/53
[2021-04-21 07:15] LABS: BASOPHILS 1.6 % (0-2); EOSINOPHILS 5.9 % (0-7); HEMATOCRIT 28.8 % (42.0-54.0); HEMOGLOBIN 9.3 g/dL (13.5-17.5); LYMPHOCYTES 23.7 % (15-50); MCH 26.8 pg (26.0-34.0); MCHC 32.2 g/dL (31.0-37.0); MCV 83.2 fL (80.0-100.0); MEAN PLATELET VOLUME 8.1 fL (7.4-10.4); MONOCYTES 15.6 % (2-11); NEUTROPHILS 53.2 % (40-80); PLATELET COUNT 470 10x3/uL (130-400); RBC 3.47 10x6/uL (4.20-6.10); RDW 18.9 % (11.5-14.5); WBC 8.3 10x3/uL (4.8-10.8)
[2021-04-21 07:54] LABS: ALBUMIN 2.8 g/dL (3.4-5.0); ANION GAP 12.1 mmol/L (8-16); BILIRUBIN - TOTAL 0.29 mg/dL (0.2-1.3); CALCIUM 8.5 mg/dL (8.5-10.1); CARBON DIOXIDE 25.6 mmol/L (21.0-32.0); CREATININE - SERUM 1.2 mg/dL (0.6-1.3); POTASSIUM - SERUM 4.7 mmol/L (3.5-5.1); PROTEIN - SERUM 7.5 g/dL (6.4-8.2)
[2021-04-21 08:53] VITALS: BP 137/67
--- NOTE | 2021-04-21 09:35 | NUR ---
PT SITTING UP IN BED EATING BREAKFAST. RESP UNLABORED AT THIS TIME. DENIES PAIN AT THIS TIME. BILATERAL TOMMY BOOTS NOTED TO BOTH LOWER EXTREMITIES. DENIES FURTHER NEEDS AT THIS TIME. CL WITHIN REACH. ENCOURAGED TO CALL WITH NEEDS. CONTINUE POC
[2021-04-21 12:58] VITALS: BP 120/51
[2021-04-21 17:11] VITALS: BP 112/48
[2021-04-21 20:00] VITALS: BP 124/44
[2021-04-22] VITALS (15 sets, daily range): BP systolic 105–145; BP diastolic 32–96
[2021-04-22 05:29] LABS: EOSINOPHILS 7.8 % (0-7); HEMATOCRIT 27.9 % (42.0-54.0); LYMPHOCYTES 21.8 % (15-50); MCH 26.8 pg (26.0-34.0); MCHC 32.1 g/dL (31.0-37.0); MCV 83.4 fL (80.0-100.0); NEUTROPHILS 53.4 % (40-80); PLATELET COUNT 446 10x3/uL (130-400); RBC 3.34 10x6/uL (4.20-6.10); RDW 18.9 % (11.5-14.5); WBC 7.3 10x3/uL (4.8-10.8)
[2021-04-22 05:46] LABS: APTT 34.6 SECONDS (22.8-39.4); INR 1.07 (0.85-1.17); PROTIME 12.8 SECONDS (11.6-15.0)
[2021-04-22 05:54] LABS: ALBUMIN 2.5 g/dL (3.4-5.0); BILIRUBIN - TOTAL 0.17 mg/dL (0.2-1.3); CALCIUM 8.4 mg/dL (8.5-10.1); CARBON DIOXIDE 24.4 mmol/L (21.0-32.0); CREATININE - SERUM 1.2 mg/dL (0.6-1.3); POTASSIUM - SERUM 4.4 mmol/L (3.5-5.1); PROTEIN - SERUM 7.4 g/dL (6.4-8.2)
--- NOTE | 2021-04-22 07:15 | NUR ---
0700 BEDSIDE REPORT RECEIVED SITTING UP IN BED WITH NO COMPLAINTS AT THIS TIME
--- NOTE | 2021-04-22 13:07 | NUR ---
0800 STARTED S/L TO LEFT WRIST WITH 20 GAUGE SITE SATISFACTORY
--- NOTE | 2021-04-22 13:07 | NUR ---
1154 TRANSPORTED TO IR FOR LUNG BIOPSY
--- NOTE | 2021-04-22 14:52 | NUR ---
PATIENT ABLE TO GET HIMSELF UP TO BEDSIDE AND STOOD WITH CGA. PATIENT TOOK A FEW STEPS IN ROOM WITH MIN ASST USING WALKER FOR 5 FEET.
--- NOTE | 2021-04-22 16:17 | NUR ---
OT NOTE: PT COMPLETED UB HYGIENE TASKS WITH SETUP. PT COMPLETED BED MOBILITY WITH SBA. PT COMPLETED RUE AROM OF ELBOW WITH NO C/O PAIN. NO FROZEN ELBOW NOTED IN RUE. PRESENTS WITH FULL FLEXION AROM AND EXTENSION AROM IS ONLY NEGATIVE FIVE DEGREES FROM FULL EXTENSION. PT COMPLETED ADL MOBILITY WITH MIN A. NOTIFIED NURSING THAT PT IS C/O HIP PAIN. FAITH ALARM PLACE. CL IN REACH. [phone] ADAM RICE COTA
--- NOTE | 2021-04-22 19:45 | NUR ---
RECEIVED BEDSIDE REPORT. PT LAYING IN BED A&O X4. PIV LEFT WRIST PATENT AND INFUSING, NO REDNESS OR SWELLING. BILAT LOWER EXTREMITIES SCABS AND SORES, TOMMY BOOTS. INCISION TO LEFT BACK, DRSG C/D/I. EDUCATED PT ON CL AND NEEDS, VERBALIZED UNDERSTANDING. BED LOW, CL IN REACH.
[2021-04-23] VITALS: BP 141/71
[2021-04-23 04:00] VITALS: BP 137/62
[2021-04-23 05:02] LABS: BASOPHILS 1.8 % (0-2); EOSINOPHILS 4.4 % (0-7); HEMATOCRIT 26.4 % (42.0-54.0); HEMOGLOBIN 8.6 g/dL (13.5-17.5); LYMPHOCYTES 19.2 % (15-50); MCH 27.1 pg (26.0-34.0); MCHC 32.5 g/dL (31.0-37.0); MCV 83.3 fL (80.0-100.0); MEAN PLATELET VOLUME 7.9 fL (7.4-10.4); MONOCYTES 12.6 % (2-11); PLATELET COUNT 480 10x3/uL (130-400); RBC 3.16 10x6/uL (4.20-6.10); RDW 19.1 % (11.5-14.5); WBC 7.8 10x3/uL (4.8-10.8)
[2021-04-23 05:32] LABS: ALBUMIN 2.7 g/dL (3.4-5.0); ANION GAP 11.8 mmol/L (8-16); BILIRUBIN - TOTAL 0.24 mg/dL (0.2-1.3); CALCIUM 8.6 mg/dL (8.5-10.1); CARBON DIOXIDE 26.4 mmol/L (21.0-32.0); CREATININE - SERUM 1.2 mg/dL (0.6-1.3); POTASSIUM - SERUM 4.2 mmol/L (3.5-5.1); PROTEIN - SERUM 7.9 g/dL (6.4-8.2)
[2021-04-23 08:56] VITALS: BP 148/99
--- NOTE | 2021-04-23 10:20 | MORECARE ---
CASE MANAGEMENT DISCHARGE SUMMARY PATIENT: LEONOR BURTON UNIT: [id number] ADM DATE: 04/08/21 AGE: 76 : 46 SEX: M ROOM/BED: D.2205 AUTHOR: GARRET,DOC PHYSICIAN: REFERRING PHYSICIAN: TELLO MARIE MD DATE OF SERVICE: 04/23/21 Case Management Discharge Planning Summary DCP REVIEW SUMMARY ANTICIPATED D/C DATE: EXPECTED LOS : CASE STATUS: DCP Initiated INITIAL REVIEW: 04/08/2021 INITIAL REVIEWER: Miley Robert FINAL DISCHARGE DISPOSITION: : FINAL REVIEWER: FINAL REVIEW DATE: DCP Focus Questions & Answers QUESTION: ANSWER : PATIENT: LEONOR BURTON ENCOUNTER: [id number] MEDICAL RECORD#: [id number] ADMISSION DATE: 04/08/2021 DISCHARGE DATE: ATTENDING MD: TELLO BUCHANAN : AGE: 76 MARITAL STATUS: W DC PLAN ID: [id number] FACILITY: [facility] PRINTED ON: 04/23/21 10:20 CT All edits/amendments must be made on the electronic document DICTATION DATE: 04/23/21 102 SPA ATTENDANT: DM 04/23/21 1020 RPT#: [id number] DC DATE: STATUS: ADM IN [facility] [address] [place] [address] END OF REPORT
--- NOTE | 2021-04-23 10:33 | MORECARE ---
CASE MANAGEMENT DISCHARGE SUMMARY PATIENT: LEONOR BURTON UNIT: [id number] ADM DATE: 04/08/21 AGE: 76 : 46 SEX: M ROOM/BED: D.2205 AUTHOR: JERSON COMBS PHYSICIAN: REFERRING PHYSICIAN: TELLO MARIE MD DATE OF SERVICE: 04/23/21 Case Management Discharge Planning Summary COMMENTS ENTERED DATE: 04/23/21 10:18 CT COMMENT TYPE: Discharge Planning REVIEWER: Miley Robert CM met with patient to complete initial dc planning assessment. CM educated patient on the CM role and verbal consent given by patient to complete assessment. Patient lives at home by himself where he states he is independent with his care for the most part. At discharge patient plans to return home and feels this is a safe discharge. He has running water and electricity at home. He has a "hourly caregiver" Kali Minor through [facility]. He states that he comes and checks on him 3 x a day, 80% of the time. He stated that Kali would be his pick up truck driver home when he is discharged. He stated that he will need home health at least weekly to do his dressing change. I have contacted Ana at the [place] to let her know the needs. He has a platform walker, cane, crutches, wheelchair, elevated toilet seat, and shower bench. His PCP is Dr Salcedo and he uses the [place] pharm. He did not think he needed prison care and a declination has been signed. WALLY for was obtained in addition to the IMM explained and copy given. He states that in addition to his VA he has [employer]ANCISCO J and MCR benefits. Patient denied known discharge needs at this time. CM will continue to follow and will assist as needed with dc plans/needs. DCP REVIEW SUMMARY ANTICIPATED D/C DATE: EXPECTED LOS : CASE STATUS: DCP Initiated INITIAL REVIEW: 04/08/2021 INITIAL REVIEWER: Miley Robert FINAL DISCHARGE DISPOSITION: : FINAL REVIEWER: FINAL REVIEW DATE: DCP Focus Questions & Answers QUESTION: ANSWER : PATIENT: LEONOR BURTON ENCOUNTER: [id number] MEDICAL RECORD#: [id number] ADMISSION DATE: 04/08/2021 DISCHARGE DATE: ATTENDING MD: TELLO BUCHANAN : AGE: 76 MARITAL STATUS: W DC PLAN ID: [id number] FACILITY: [facility] PRINTED ON: 04/23/21 10:33 CT All edits/amendments must be made on the electronic document DICTATION DATE: 04/23/21 103 RECYCLE WORKER: EDGAR 04/23/21 1033 RPT#: [id number] DC DATE: STATUS: ADM IN [facility] [address] [place] [address] END OF REPORT
[2021-04-23 12:38] VITALS: BP 146/61
--- NOTE | 2021-04-23 12:45 | NUR ---
Nutrition follow-up: Diet oder: REgular PO intake 75-100% of meals Labs revierwed No BM charted since 04/15/21?? Colace ordered BID but is not being given. PO intake good at this time Pt currently meeting most nutritional goals. RDN will reassess patients progress in 5-7 days.
--- NOTE | 2021-04-23 13:31 | NUR ---
WALKED 100FT WITH WALKER STOPPED 9 TIMES TO REST VERY TIRED AT THE END OF THE WALK
--- NOTE | 2021-04-23 15:26 | NUR ---
OT NOTE: PT COMPLETED ADL MOB WITH CGA-SBA. PT COMPLETED BUE AROM EXERCISES TOLERATED. PT COMPLETED LB DRESSING WITH SPV-SBA. PT COMPLETED UB HYGIENE WITH SETUP. [phone] THANK YOU,LUIS FERNANDO ARREOLA
--- NOTE | 2021-04-23 15:49 | NUR ---
0700 BEDSIDE REPORT RECEIVED DRESSSNG TO LEFT BACK PUNCTURE SITE FROM LUNG BIOPSY SITE CDI LEN LOWER EXTREMETIES WRAPPED UN UNNA BOOTS WITH GAUZE OVERLAID
--- NOTE | 2021-04-23 15:52 | NUR ---
1049 AMBULATING IN HALLS WITH PT OWN WALKER AND PHYSICAL THERAPIST ASSIST X 2
[2021-04-23 17:24] VITALS: BP 147/67
--- NOTE | 2021-04-23 19:45 | NUR ---
RECEIVED BEDSIDE REPORT. PT LAYING IN BED A&O X4. PIV TO LEFT WRIST PATENT AND SL, NO REDNESS OR SWELLING. INCISION TO LEFT BACK, DRSG C/D/I. BILAT LOWER EXTREM, SCABS/SORES, TOMMY BOOTS IN PLACE. EDUCATED PT ON CL AND NEEDS, VERBALIZED UNDERSTANDING. BED LOW, CL IN REACH.
[2021-04-23 20:00] VITALS: BP 136/57
[2021-04-24] VITALS: BP 131/63
[2021-04-24 04:00] VITALS: BP 163/80
[2021-04-24 06:22] LABS: BASOPHILS 1.4 % (0-2); EOSINOPHILS 5.2 % (0-7); HEMATOCRIT 27.2 % (42.0-54.0); HEMOGLOBIN 8.6 g/dL (13.5-17.5); LYMPHOCYTES 24.6 % (15-50); MCH 26.3 pg (26.0-34.0); MCHC 31.4 g/dL (31.0-37.0); MCV 83.8 fL (80.0-100.0); MEAN PLATELET VOLUME 7.8 fL (7.4-10.4); MONOCYTES 11.3 % (2-11); NEUTROPHILS 57.5 % (40-80); PLATELET COUNT 479 10x3/uL (130-400); RBC 3.25 10x6/uL (4.20-6.10); RDW 18.9 % (11.5-14.5); WBC 8.5 10x3/uL (4.8-10.8)
[2021-04-24 07:00] LABS: ALBUMIN 2.7 g/dL (3.4-5.0); ANION GAP 13.6 mmol/L (8-16); BILIRUBIN - TOTAL 0.25 mg/dL (0.2-1.3); CALCIUM 8.5 mg/dL (8.5-10.1); CARBON DIOXIDE 25.5 mmol/L (21.0-32.0); CREATININE - SERUM 1.1 mg/dL (0.6-1.3); POTASSIUM - SERUM 4.1 mmol/L (3.5-5.1); PROTEIN - SERUM 7.7 g/dL (6.4-8.2)
--- NOTE | 2021-04-24 08:10 | NUR ---
PT SITING UP IN BED WATCHING TV. NO ACUTE DISTRESS NOTED. SALINE LOC TO LEFT WRIST. SITE WITHOUT REDNESS OR EDEMA. DENIES PAIN AT THIS TIME. TOMMY BOOTS INTACT TO BILAT LOWER EXTREMITIES. DENIES FURTHER NEEDS AT THIS TIME. CL WITHIN REACH. ENCOURAGED TO CALLWITH NEEDS. CONTINUE POC
[2021-04-24 09:24] VITALS: BP 106/44
[2021-04-24 11:52] VITALS: BP 106/44
[2021-04-24] MEDS ORDERED: FLUTICASONE PRO16 GM NASAL (12:03)
[2021-04-24] MEDS ORDERED: SINGULAIR10 MG PO (12:03)
[2021-04-24] MEDS ORDERED: FLORAJEN DIGES1 EACH PO (12:03)
[2021-04-24] MEDS ORDERED: NICODERM CQ1 EAC3 TRANSDERM (12:03)
[2021-04-24] MEDS ORDERED: PROTONIX40 MG PO (12:04)
[2021-04-24] MEDS ORDERED: Unna-Flex TOPICAL (12:04)
[2021-04-24] MEDS ORDERED: ELIQUIS5 MG PO (12:06)
--- NOTE | 2021-04-24 12:46 | MORECARE ---
CASE MANAGEMENT DISCHARGE SUMMARY PATIENT: LEONOR BURTON UNIT: [id number] ADM DATE: 04/08/21 AGE: 76 : 46 SEX: M ROOM/BED: D.2205 AUTHOR: GARRET,DOC PHYSICIAN: REFERRING PHYSICIAN: TELLO MARIE MD DATE OF SERVICE: 04/24/21 Case Management Discharge Planning Summary COMMENTS ENTERED DATE: 04/24/21 12:40 CT COMMENT TYPE: Discharge Planning REVIEWER: Miley Robert SPOKE WITH CAMACHO MENDES AT THE [place] ABOUT PATIENT DISCHARGING AND WILL NEED HOME HEALTH I HAVE FAXED CLINICALS OVER TO THE [place] FOR HOME HEALTH TO BE SET UP ENTERED DATE: 04/23/21 10:18 CT COMMENT TYPE: Discharge Planning REVIEWER: Miley Robert CM met with patient to complete initial dc planning assessment. CM educated patient on the CM role and verbal consent given by patient to complete assessment. Patient lives at home by himself where he states he is independent with his care for the most part. At discharge patient plans to return home and feels this is a safe discharge. He has running water and electricity at home. He has a "manager respiratory care" Kali Mendes through [facility]. He states that he comes and checks on him 3 x a day, 80% of the time. He stated that Kali would be his yard truck driver home when he is discharged. He stated that he will need home health at least weekly to do his dressing change. I have contacted Camacho at the [place] to let her know the needs. He has a platform walker, cane, crutches, wheelchair, elevated toilet seat, and shower bench. His P[facility] is Dr Salcedo [facility] He did not think he needed penitentiary care and a declination has been signed. WALLY for was obtained in addition to the IMM explained and copy given. He states that in addition to his VA he has FRANCIS[employer] J and MCR benefits. Patient denied known discharge needs at this time. CM will continue to follow and will assist as needed with dc plans/needs. DCP REVIEW SUMMARY ANTICIPATED D/C DATE: EXPECTED LOS : CASE STATUS: DCP Initiated INITIAL REVIEW: 04/08/2021 INITIAL REVIEWER: Miley Robert FINAL DISCHARGE DISPOSITION: : FINAL REVIEWER: FINAL REVIEW DATE: DCP Focus Questions & Answers QUESTION: ANSWER : PATIENT: LEONOR BURTON ENCOUNTER: [id number] MEDICAL RECORD#: [id number] ADMISSION DATE: 04/08/2021 DISCHARGE DATE: ATTENDING MD: TELLO BUCHANAN : AGE: 76 MARITAL STATUS: W DC PLAN ID: [id number] FACILITY: [facility] PRINTED ON: 04/24/21 12:46 CT All edits/amendments must be made on the electronic document DICTATION DATE: 04/24/21 124 AUDIOVISUAL EQUIPMENT OPERATOR: EDGAR 04/24/21 1246 RPT#: [id number] DC DATE: STATUS: ADM IN [facility] [address] [place] [address] END OF REPORT
[2021-04-24] MEDS ORDERED: CLEOCIN HCL150 MG PO (12:48)
--- NOTE | 2021-04-24 14:42 | MORECARE ---
CASE MANAGEMENT DISCHARGE SUMMARY PATIENT: LEONOR BURTON UNIT: [id number] ADM DATE: 04/08/21 AGE: 76 : 46 SEX: M ROOM/BED: D.2205 AUTHOR: GARRET,DOC PHYSICIAN: REFERRING PHYSICIAN: TELLO MARIE MD DATE OF SERVICE: 04/24/21 Case Management Discharge Planning Summary COMMENTS ENTERED DATE: 04/24/21 14:30 CT COMMENT TYPE: Discharge Planning REVIEWER: Miley Robert PATIENT WILL BE GIVEN CAMACHO MENDES THE [facility]ITY [facility]ARE NURSE CONTACT INFO. IF HE HAS ANY QUESTIONS. SHE WILL BE SETTING UP HIS SUPPLIES AND HOME HEALTH PATIENT WILL BE DISCHARGING HOME TODAY ENTERED DATE: 04/24/21 12:40 CT COMMENT TYPE: Discharge Planning REVIEWER: Miley Robert SPOKE WITH CAMACHO MENDES AT THE [place] ABOUT PATIENT DISCHARGING AND WILL NEED HOME HEALTH I HAVE FAXED CLINICALS OVER TO THE [place] FOR HOME HEALTH TO BE SET UP ENTERED DATE: 04/23/21 10:18 CT COMMENT TYPE: Discharge Planning REVIEWER: Miley Robert CM met with patient to complete initial dc planning assessment. CM educated patient on the CM role and verbal consent given by patient to complete assessment. Patient lives at home by himself where he states he is independent with his care for the most part. At discharge patient plans to return home and feels this is a safe discharge. He has running water and electricity at home. He has a "customer care consultant" Kali Mendes through [facility]. He states that he comes and checks on him 3 x a day, 80% of the time. He stated that Kali would be his flag car driver home when he is discharged. He stated that he will need home health at least weekly to do his dressing change. I have contacted Camacho at the [place] to let her know the needs. He has a platform walker, cane, crutches, wheelchair, elevated toilet seat, and shower bench. His PCP is Dr Salcedo and [facility] He did not think he needed alf care and a declination has been signed. WALLY for was obtained in addition to the IMM explained and copy given. He states that in addition to his VA he has [employer]ANCIS[employer] J and MCR benefits. Patient denied known discharge needs at this time. CM will continue to follow and will assist as needed with dc plans/needs. DCP REVIEW SUMMARY ANTICIPATED D/C DATE: EXPECTED LOS : CASE STATUS: DCP Initiated INITIAL REVIEW: 04/08/2021 INITIAL REVIEWER: Miley Robert FINAL DISCHARGE DISPOSITION: : FINAL REVIEWER: FINAL REVIEW DATE: DCP Focus Questions & Answers QUESTION: ANSWER : PATIENT: LEONOR BURTON ENCOUNTER: [id number] MEDICAL RECORD#: [id number] ADMISSION DATE: 04/08/2021 DISCHARGE DATE: ATTENDING MD: TELLO BUCHANAN : AGE: 76 MARITAL STATUS: W DC PLAN ID: [id number] FACILITY: [facility] PRINTED ON: 04/24/21 14:42 CT All edits/amendments must be made on the electronic document DICTATION DATE: 04/24/211440 NETWORK PROFESSIONAL: EDGAR 04/24/21 144 RPT#: [id number] DC DATE: STATUS: ADM IN [facility] [address] [place] [address] END OF REPORT
--- NOTE | 2021-04-24 15:49 | MORECARE ---
CASE MANAGEMENT DISCHARGE SUMMARY PATIENT: LEONOR BURTON UNIT: [id number] ADM DATE: 04/08/21 AGE: 76 : 46 SEX: M ROOM/BED: D.2205 AUTHOR: GARRET,DOC PHYSICIAN: REFERRING PHYSICIAN: TELLO MARIE MD DATE OF SERVICE: 04/24/21 Case Management Discharge Planning Summary COMMENTS ENTERED DATE: 04/24/21 14:30 CT COMMENT TYPE: Discharge Planning REVIEWER: Miley Robert PATIENT WILL BE GIVEN CAMACHO MENDES THE [facility]ITY [facility]ARE NURSE CONTACT INFO. IF HE HAS ANY QUESTIONS. SHE WILL BE SETTING UP HIS SUPPLIES AND HOME HEALTH PATIENT WILL BE DISCHARGING HOME TODAY ENTERED DATE: 04/24/21 12:40 CT COMMENT TYPE: Discharge Planning REVIEWER: Miley Robert SPOKE WITH CAMACHO MENDES AT THE [place] ABOUT PATIENT DISCHARGING AND WILL NEED HOME HEALTH I HAVE FAXED CLINICALS [place] TO THE [place] FOR HOME HEALTH TO BE SET UP ENTERED DATE: 04/23/21 10:18 CT COMMENT TYPE: Discharge Planning REVIEWER: Miley Robert CM met with patient to complete initial dc planning assessment. CM educated patient on the CM role and verbal consent given by patient to complete assessment. Patient lives at home by himself where he states he is independent with his care for the most part. At discharge patient plans to return home and feels this is a safe discharge. He has running water and electricity at home. He has a "customer care specialist" Kali Mendes through [facility]. He states that he comes and checks on him 3 x a day, 80% of the time. He stated that Kali would be his line haul driver home when he is discharged. He stated that he will need home health at least weekly to do his dressing change. I have contacted Camacho at the [place] to let her know the needs. He has a platform walker, cane, crutches, wheelchair, elevated toilet seat, and shower bench. His PCP is Dr Salcedo [facility] He did not think he needed alf care and a declination has been signed. WALLY for was obtained in addition to the IMM explained and copy given. He states that in addition to his VA he has [employer]ANCIS[employer] J and MCR benefits. Patient denied known discharge needs at this time. CM will continue to follow and will assist as needed with dc plans/needs. DCP REVIEW SUMMARY ANTICIPATED D/C DATE: EXPECTED LOS : CASE STATUS: DCP Initiated INITIAL REVIEW: 04/08/2021 INITIAL REVIEWER: Miley Robert FINAL DISCHARGE DISPOSITION: : FINAL REVIEWER: FINAL REVIEW DATE: DCP Focus Questions & Answers QUESTION: ANSWER : PATIENT: LEONOR BURTON ENCOUNTER: [id number] MEDICAL RECORD#: [id number] ADMISSION DATE: 04/08/2021 DISCHARGE DATE: ATTENDING MD: TELLO BUCHANAN : AGE: 76 MARITAL STATUS: W DC PLAN ID: [id number] FACILITY: [facility] PRINTED ON: 04/24/21 15:49 CT All edits/amendments must be made on the electronic document DICTATION DATE: 04/24/21 154 EVENT STAFF: EDGAR 04/24/21 1549 RPT#: [id number] DC DATE: STATUS: ADM IN [facility] [address] [place] [address] END OF REPORT
--- NOTE | 2021-04-24 16:42 | NUR ---
OT NOTE: PT ABLE TO AMB WITH PLATFORM WALKER FROM BED TO TOILET WITHOUT ASSIST; TOILET HYGIENE AND CLOTHING MGMT WITH MOD I; ABLE TO OBTAIN CLOTHING FROM CLOSET AND KATHERINE SHIRT AND PANTS WHILE SITTING ON EOB.. PT STATES THAT HE WILL BE RETURNING HOME THIS AFTERNOON. PT DOING WELL WITH PLATFORM WALKER. PT STATES HE USES WC MOST OF THE TIME AT HOME. SAUL BRAXTON, OTR/L
--- NOTE | 2021-04-25 10:38 | MORECARE ---
CASE MANAGEMENT DISCHARGE SUMMARY PATIENT: LEONOR BURTON UNIT: [id number] ADM DATE: 04/08/21 AGE: 76 : 46 SEX: M ROOM/BED: D.2205 AUTHOR: GARRET,DOC PHYSICIAN: REFERRING PHYSICIAN: TELLO MARIE MD DATE OF SERVICE: 04/25/21 Case Management Discharge Planning Summary COMMENTS ENTERED DATE: 04/24/21 14:30 CT COMMENT TYPE: Discharge Planning REVIEWER: Miley Robert PATIENT WILL BE GIVEN CAMACHO MENDES THE [facility]ITY [facility]ARE NURSE CONTACT INFO. IF HE HAS ANY QUESTIONS. SHE WILL BE SETTING UP HIS SUPPLIES AND HOME HEALTH PATIENT WILL BE DISCHARGING HOME TODAY ENTERED DATE: 04/24/21 12:40 CT COMMENT TYPE: Discharge Planning REVIEWER: Miley Robert SPOKE WITH CAMACHO MENDES AT THE [place] ABOUT PATIENT DISCHARGING AND WILL NEED HOME HEALTH I HAVE FAXED CLINICALS [place] TO THE [place] FOR HOME HEALTH TO BE SET UP ENTERED DATE: 04/23/21 10:18 CT COMMENT TYPE: Discharge Planning REVIEWER: Miley Robert CM met with patient to complete initial dc planning assessment. CM educated patient on the CM role and verbal consent given by patient to complete assessment. Patient lives at home by himself where he states he is independent with his care for the most part. At discharge patient plans to return home and feels this is a safe discharge. He has running water and electricity at home. He has a "certified social workers in health care" Kali Mendes through [facility]. He states that he comes and checks on him 3 x a day, 80% of the time. He stated that Kali would be his milk pickup driver home when he is discharged. He stated that he will need home health at least weekly to do his dressing change. I have contacted Camacho at the [place] to let her know the needs. He has a platform walker, cane, crutches, wheelchair, elevated toilet seat, and shower bench. His PCP is Dr Salcedo [facility] He did not think he needed [facility] care and a declination has been signed. WALLY for HH was obtained in addition to the IMM explained and copy given. He states that in addition to his VA he has FRANCISCO J and MCR benefits. Patient denied known discharge needs at this time. CM will continue to follow and will assist as needed with dc plans/needs. DCP REVIEW SUMMARY ANTICIPATED D/C DATE: EXPECTED LOS : CASE STATUS: DCP Initiated INITIAL REVIEW: 04/08/2021 INITIAL REVIEWER: Miley Robert FINAL DISCHARGE DISPOSITION: : FINAL REVIEWER: FINAL REVIEW DATE: DCP Focus Questions & Answers QUESTION: ANSWER : PATIENT: LEONOR BURTON ENCOUNTER: [id number] MEDICAL RECORD#: [id number] ADMISSION DATE: 04/08/2021 DISCHARGE DATE: 04/24/2021 ATTENDING MD: TELLO BUCHANAN : AGE: 76 MARITAL STATUS: W DC PLAN ID: [id number] FACILITY: [facility] PRINTED ON: 04/25/21 10:38 CT All edits/amendments must be made on the electronic document DICTATION DATE: 04/25/21 1038 CALENDERING MACHINE OPERATOR: EDGAR 04/25/21 1038 RPT#: [id number] DC DATE:04/24/21 STATUS: DIS IN [facility] [address] [place] [address] END OF REPORT
--- NOTE | 2021-04-26 15:30 | MORECARE ---
CASE MANAGEMENT DISCHARGE SUMMARY PATIENT: LEONOR BURTON UNIT: [id number] ADM DATE: 04/08/21 AGE: 76 : 47 SEX: M ROOM/BED: D.2205 AUTHOR: GARRET,DOC PHYSICIAN: REFERRING PHYSICIAN: TELLO MARIE MD DATE OF SERVICE: 04/26/21 Case Management Discharge Planning Summary COMMENTS ENTERED DATE: 04/24/21 14:30 CT COMMENT TYPE: Discharge Planning REVIEWER: Miley Robert PATIENT WILL BE GIVEN CAMACHO MENDES THE [facility] NURSE CONTACT INFO. IF HE HAS ANY QUESTIONS. SHE WILL BE SETTING UP HIS SUPPLIES AND HOME HEALTH PATIENT WILL BE DISCHARGING HOME TODAY ENTERED DATE: 04/24/21 12:40 CT COMMENT TYPE: Discharge Planning REVIEWER: Miley Robert SPOKE WITH CAMACHO MENDES AT THE [place] ABOUT PATIENT DISCHARGING AND WILL NEED HOME HEALTH I HAVE FAXED CLINICALS OVER TO THE [place] FOR HOME HEALTH TO BE SET UP ENTERED DATE: 04/23/21 10:18 CT COMMENT TYPE: Discharge Planning REVIEWER: Miley Robert CM met with patient to complete initial dc planning assessment. CM educated patient on the CM role and verbal consent given by patient to complete assessment. Patient lives at home by himself where he states he is independent with his care for the most part. At discharge patient plans to return home and feels this is a safe discharge. He has running water and electricity at home. He has a "dog day care attendant" Kali Mendes through [facility]. He states that he comes and checks on him 3 x a day, 80% of the time. 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 He stated that he will need home health at least weekly to do his dressing change. I have contacted Camacho at the [place] to let her know the needs. He has a platform walker, cane, crutches, wheelchair, elevated toilet seat, and shower bench. His P[facility] is [facility] Salcedo [facility] He did not think he needed usp care and a declination has been signed. [facility] for HH was obtained in addition to the IMM explained and copy given. He states that in addition to his [facility] he has [employer] and [facility] benefits. Patient denied known discharge needs at this time. CM will continue to follow and will assist as needed with dc plans/needs. DCP REVIEW SUMMARY ANTICIPATED D/C DATE: EXPECTED LOS : CASE STATUS: DCP Initiated INITIAL REVIEW: 04/08/2021 INITIAL REVIEWER: Miley Robert FINAL DISCHARGE DISPOSITION: : FINAL REVIEWER: FINAL REVIEW DATE: DCP [employer] Questions [employer] Answers QUESTION: ANSWER : PATIENT: LEONOR BURTON ENCOUNTER: [id number] MEDICAL RECORD#: [id number] ADMISSION DATE: 04/08/2021 DISCHARGE DATE: 04/24/2021 ATTENDING MD: TELLO BUCHANAN : AGE: 76 MARITAL STATUS: W DC PLAN ID: [id number] FACILITY: [facility] PRINTED ON: 04/26/21 15:30 CT All edits/amendments must be made on the electronic document DICTATION DATE: 04/26/21 153 CALL CENTER DISPATCHER: EDGAR 04/26/21 1530 RPT#: [id number] DC DATE:04/24/21 STATUS: DIS IN [facility] [address] [place] [address] END OF REPORT
== END 2021-04-24 18:38 | disposition home health service (06) | DRG 580 ==
LOC: D.ER 15:18 → D.MS 19:33
PROVIDERS: Emergency Medicine; Family Medicine; General Practice; Internal Medicine Pulmonary Disease; ADMIT Emergency Medicine; ATTEND Emergency Medicine
PROC: 07B63ZX Excision of Left Axillary Lymphatic, Percutaneous Approach, Diagnostic (ICD-10-PCS; principal; 2021-04-12)
PROC: 0BBJ3ZX Excision of Left Lower Lung Lobe, Percutaneous Approach, Diagnostic (ICD-10-PCS; 2021-04-22)
DX: L03.116 Cellulitis of left lower limb (principal); I82.402 Acute embolism and thrombosis of unspecified deep veins of left lower extremity; I10 Essential (primary) hypertension; J44.9 Chronic obstructive pulmonary disease, unspecified; J45.909 Unspecified asthma, uncomplicated; F32.9 Major depressive disorder, single episode, unspecified; I87.2 Venous insufficiency (chronic) (peripheral); L03.115 Cellulitis of right lower limb; G47.34 Idiopathic sleep related nonobstructive alveolar hypoventilation; Z72.0 Tobacco use; K86.89 Other specified diseases of pancreas